=== PATIENT | male | born 1945 | race Caucasian/White ===

== ENCOUNTER → 2019-03-31 09:32 | Outpatient (CLI) | payer MEDICARE, SELFPAY ==
[2019-02-05 13:18] VITALS: BMI 40.2
[2019-03-31 11:06] LABS: Anion Gap 7 (5-15); BUN 24 mg/dL (7-18); BUN/Creat Ratio 19.4 RATIO (10-20); Calcium,Total 9.3 mg/dL (8.5-10.1); Chloride 105 mmol/L (98-107); Creatinine, Serum 1.24 mg/dL (0.70-1.30); EST Glomerular Filtration Rate 61 mL/min (>60); Est Glom Filt Rate - Afr Amer 73 mL/min (>60); Glucose 138 mg/dL (74-106); Potassium 3.5 mmol/L (3.5-5.1); Sodium Level 139 mmol/L (136-145)
== END ==
PROVIDERS: Family Provider Family Medicine; PCP Family Medicine; Referring Provider Internal Medicine Cardiovascular Disease; Visit Provider Internal Medicine Cardiovascular Disease
DX: E78.5 Hyperlipidemia, unspecified (principal); I10 Essential (primary) hypertension; I25.10 Atherosclerotic heart disease of native coronary artery without angina pectoris; I48.0 Paroxysmal atrial fibrillation; Z95.1 Presence of aortocoronary bypass graft
CPT/HCPCS: 36415; 80048

== ENCOUNTER 2020-06-28 17:35 | Outpatient (RCR) | payer MEDICARE, SELFPAY ==
[2020-02-02 13:53] VITALS: BMI 39.9
== END 2020-06-28 23:59 ==
LOC: IMMUN 17:35
PROVIDERS: PCP Family Medicine; Referring Provider Family Medicine; Visit Provider Family Medicine
DX: Z23 Encounter for immunization (principal)
CPT/HCPCS: 0011A; 0012A

== ENCOUNTER → 2022-02-21 | Outpatient (CLI) | payer MEDICARE, MEDICAID, SELFPAY ==
--- NOTE | 2022-02-21 08:54 | ECHOCS_ITS ---
Reason For Study: s/p CABG Procedure This was a 2D Doppler, Color Flow transthoracic echocardiogram. The study was technically difficult. Contrast injection was performed. Exam performed in department. Left Ventricle Normal LV size. Segmental dysfunction with preserved ejection fraction (see wall motion). The estimated ejection fraction is 60 %. Post operative septal motion. No evidence for diastolic dysfunction. Mid-inferoseptal : Hypokinetic. Mid-anteroseptal : Hypokinetic. Right Ventricle Normal RV size. Normal systolic function. Atria The left atrium is mildly enlarged. Normal right atrium. No doppler evidence for ASD. Mitral Valve There is no mitral annular calcification. Normal mitral valve. Trivial mitral valve insufficiency. Tricuspid Valve Normal tricuspid valve. Trivial tricuspid valve insufficiency. Right ventricular systolic pressure estimated to be 33 mmHg. Aortic Valve Trisinus/trileaflet aortic valve. Mild focal aortic valve calcification. Pulmonic Valve The pulmonic valve is not well visualized. Great Vessels Borderline enlarged aortic root. Pericardium/Pleural No pericardial effusion. Medication 20 gauge I.V. with prn adaptor inserted into left arm. Diluted definity 2ml given slow IV push to enhance endocardial definition. MMode/2D Measurements & Calculations LVIDd: 5.5 cm IVSd: 1.1 cm Ao root diam: 3.9 cm LVIDs: 3.6 cm LVPWd: 1.1 cm LA dimension: 5.3 cm FS: 34.3 % LAV(MOD-bp): 72.5 ml LA A4 area: 25.4 cm2 RA A4 area: 17.8 cm2 LAV(MOD-bp) Indexed: 28.9 ml/m2 LAV(MOD-sp2): 62.9 ml LAV(MOD-sp4): 73.4 ml Time Measurements MV dec time: 0.17 sec Doppler Measurements & Calculations MV E max raul: 74.1 cm/sec Lat Peak E' Raul: 8.4 cm/sec Med Peak E' Raul: 10.1 cm/sec MV A max raul: 62.8 cm/sec E/E' lat: 8.8 E/E' med: 7.4 MV E/A: 1.2 MV V2 max: 97.6 cm/sec MV P1/2t max raul: 97.6 cm/sec Ao V2 max: 154.1 cm/sec MV max P.8 mmHg MV P1/2t: 64.9 msec Ao max P.5 mmHg MV V2 mean: 41.5 cm/sec MV dec slope: 440.4 cm/sec2 Ao V2 mean: 104.7 cm/sec MV mean P.88 mmHg Ao mean P.1 mmHg MV V2 VTI: 35.5 cm MVA(P1/2t): 3.4 cm2 Ao V2 VTI: 36.7 cm LV V1 max: 118.7 cm/sec PA V2 max: 94.3 cm/sec TR max raul: 272.2 cm/sec LV V1 max P.6 mmHg PA V2 mean: 59.6 cm/sec TR max P.6 mmHg LV V1 mean P.1 mmHg LV V1 mean: 83.2 cm/sec LV V1 VTI: 27.3 cm ECHO/Echo Complete W/ Contrast Interpretation Summary The study was technically difficult. Contrast injection was performed. Segmental dysfunction with preserved ejection fraction (see wall motion). The estimated ejection fraction is 60 %. Post operative septal motion. The left atrium is mildly enlarged. Trivial mitral valve insufficiency. Trivial tricuspid valve insufficiency. Mild focal aortic valve calcification. Right ventricular systolic pressure estimated to be 33 mmHg. No evidence for diastolic dysfunction. Ordering Physician: Suresh Lopez Referring Physician: Azael Gonsales Performed By: Stephen Agustin RCS
== END | disposition home or self-care (01) ==
LOC: CVS 08:53
PROVIDERS: PCP Family Medicine; Referring Provider Internal Medicine Cardiovascular Disease; Visit Provider Internal Medicine Cardiovascular Disease
DX: I25.10 Atherosclerotic heart disease of native coronary artery without angina pectoris (principal); Z95.1 Presence of aortocoronary bypass graft
CPT/HCPCS: 93306; Q9957; A4216; C8929

== ENCOUNTER 2022-08-16 14:44 | Emergency (ER) | payer MEDICARE, MEDICAID, SELFPAY ==
[2022-08-16 14:44] VITALS: BP 170/85; PULSE 51; RESP 18; TEMP 35.9; O2SAT 94; BMI 39.2
--- NOTE | 2022-08-16 14:54 | CT_ITS ---
EXAM: CT CERVICAL SPINE WITHOUT INTRAVENOUS CONTRAST CLINICAL INDICATION: Trauma injury. Right frontal scalp hematoma. TECHNIQUE: Helically acquired images were obtained of the cervical spine without intravenous contrast. 2D reformatted images were reviewed. This CT exam was performed using one or more of the following dose reduction techniques: automated exposure control, adjustment of the mA and/or kV according to patient size, and/or use of iterative reconstruction technique. This report was created using [email or web address] report generation technology. RADIATION DOSE: CTDIvol = 29.07 mGy, DLP = 626.21 mGy-cm COMPARISON: None. FINDINGS: VERTEBRAE: Mild degenerative anterolisthesis of C3 on C4. Straightening of the C-spine curvature. Moderate left C3-C4 degenerative facet arthropathy. Degenerative cyst in the left C7 inferior to the facet. Mild to moderate right C4-C5 degenerative facet arthropathy with small degenerative cysts. No discrete lytic or blastic abnormality. Normal craniocervical junction and cervicothoracic junction. Normal vertebral body heights. DISCS/SPINAL CANAL/NEURAL FORAMINA: Moderate stenosis of the C5-C6 intervertebral neural foramina due to bone spurs arising from the uncovertebral joints. Ankylosis of the right C2-C3 facet joint and partial ankylosis of the left C2-C3 facet joint. Moderate disc space height narrowing at C5-C6 and C6-C7 disc space levels. Prominent and bridging right-sided anterior marginal spurs at C5-C6 and C6-C7 disc space levels. SOFT TISSUES: Unremarkable. No prevertebral soft tissue swelling. VASCULATURE: Prominent calcified plaque in the right proximal internal carotid artery with suspicious high-grade stenosis. LYMPH NODES: Unremarkable. No cervical adenopathy. LUNG APICES: Unremarkable as visualized. Clear. CT/Spine Cervical without Contras IMPRESSION: 1. No CT evidence of acute fracture in the cervical spine, craniocervical junction and cervicothoracic junction. 2. Mild degenerative anterolisthesis of C3 on C4. 3. Ankylosis of the C3-C4 facet joints. 4. Moderate stenosis of the C5-C6 intervertebral neural foramina due to bone spurs arising from the uncovertebral joints. 5. Degenerative cysts in the left C7 intra-articular facet. 6. Degenerative cyst in the right C4-C5 facet joint. 7. Prominent circumferential calcified plaques in the right proximal internal carotid artery worrisome for high-grade stenosis. MRA of the neck will be very helpful for further evaluation. Electronically Signed: Lucien Nevarez MD at 15:54 EDT ,
--- NOTE | 2022-08-16 14:54 | CT_ITS ---
EXAM: CT HEAD WITHOUT INTRAVENOUS CONTRAST CLINICAL INDICATION: Trauma head injury. TECHNIQUE: Multiple axial images were obtained of the head without intravenous contrast. This CT exam was performed using one or more of the following dose reduction techniques: automated exposure control, adjustment of the mA and/or kV according to patient size, and/or use of iterative reconstruction technique. This report was created using [employer] report generation technology. RADIATION DOSE: CTDIvol = 44.99 mGy, DLP = 812.98 mGy-cm COMPARISON: None. FINDINGS: BRAIN AND EXTRA-AXIAL SPACES: Unremarkable. No intra- or extra-axial hemorrhage. No evidence of acute infarct. No intracranial mass or mass effect. There is preservation of the luna/white matter interface. Posterior fossa structures are unremarkable. Ventricles are appropriate for age. No hydrocephalus. Basal cisterns are patent. BONES/JOINTS: Unremarkable. No discrete lytic or blastic abnormalities. SOFT TISSUES: Large subgaleal hematoma in the right frontal scalp. SINUSES: Unremarkable as visualized. Clear. MASTOID AIR CELLS: Unremarkable. Clear. ORBITS: Visualized globes, extraocular muscles, optic nerves and retrobulbar fat appear unremarkable. CT/Brain/Head without Contrast IMPRESSION: Large subgaleal hematoma in the right lateral frontal scalp but no CT evidence of intracranial bleeding, acute ischemic infarct or acute intracranial abnormality. Electronically Signed: Lucien Nevarez MD at 15:46 EDT ,
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
[2022-08-16] MEDS: Diphth,Pertuss(Acell),Tet Vac 0.5 ML Vial IM (15:05)
[2022-08-16 16:13] VITALS: BP 134/78; PULSE 67; RESP 18; TEMP 36.6; O2SAT 99
== END 2022-08-16 16:14 | disposition home or self-care (01) ==
PROVIDERS: Emergency Provider Emergency Medicine; PCP Family Medicine; Visit Provider Emergency Medicine
DX: S00.03XA Contusion of scalp, initial encounter (principal); I25.10 Atherosclerotic heart disease of native coronary artery without angina pectoris; I25.2 Old myocardial infarction; Z86.73 Personal history of transient ischemic attack (TIA), and cerebral infarction without residual deficits; Z23 Encounter for immunization; Z87.891 Personal history of nicotine dependence; Z95.1 Presence of aortocoronary bypass graft; X58.XXXA Exposure to other specified factors, initial encounter
CPT/HCPCS: 70450; 72125; 90471; 90715; 99282

== ENCOUNTER → 2022-12-01 | Outpatient (CLI) | payer MEDICARE, MEDICAID, SELFPAY ==
--- NOTE | 2022-12-01 13:57 | ECHOD_ITS ---
Reason For Study: PRE CHEMO Procedure This was a 2D Doppler, Color Flow transthoracic echocardiogram. Myocardial strain analysis was performed in this exam to aid in the assessment of cardiac function. The study was technically difficult. Exam performed in department. Left Ventricle Normal LV size. Left ventricular systolic function is normal. Stage 1 diastolic dysfunction. The estimated ejection fraction is 60 %. No regional wall motion abnormalities noted. Right Ventricle Normal RV size. Normal systolic function. Atria The left atrium is mildly enlarged. Normal right atrium. Mitral Valve Normal mitral valve. Tricuspid Valve Normal tricuspid valve. Trivial tricuspid valve insufficiency. Pulmonary artery systolic pressure is 30 mmHg. Aortic Valve Trisinus/trileaflet aortic valve. Pulmonic Valve Normal pulmonic valve. Great Vessels Calcified aortic root. The pulmonary artery is normal size. Normal inferior vena cava. Pericardium/Pleural No pericardial effusion. MMode/2D Measurements & Calculations LVIDd: 5.4 cm IVSd: 1.0 cm Ao root diam: 3.9 cm LVIDs: 3.6 cm LVPWd: 1.0 cm RVDd: 3.6 cm FS: 33.8 % LAV(MOD-bp): 61.9 ml EDV(MOD-sp4): 97.7 ml EDV(MOD-sp2): 52.1 ml LAV(MOD-bp) Indexed: 25.0 ml/m2 ESV(MOD-sp4): 38.7 ml ESV(MOD-sp2): 21.7 ml LAV(MOD-sp2): 53.4 ml EF(MOD-sp4): 60.4 % EF(MOD-sp2): 58.3 % LAV(MOD-sp4): 60.7 ml SV(MOD-sp4): 59.1 ml SV(MOD-sp2): 30.3 ml LA A4 area: 20.3 cm2 LA dimension(2D): 4.8 cm RA A4 area: 14.7 cm2 Time Measurements MV dec time: 0.18 sec Doppler Measurements & Calculations MV E max raul: 66.0 cm/sec Lat Peak E' Raul: 9.9 cm/sec Med Peak E' Raul: 7.4 cm/sec MV A max raul: 71.1 cm/sec E/E' lat: 6.7 E/E' med: 8.9 MV E/A: 0.93 MV dec slope: 353.4 cm/sec2 Ao V2 max: 119.0 cm/sec LV V1 max: 98.5 cm/sec Ao max P.7 mmHg LV V1 max P.9 mmHg Ao V2 mean: 88.5 cm/sec LV V1 mean P.9 mmHg Ao mean P.4 mmHg LV V1 mean: 63.7 cm/sec Ao V2 VTI: 27.4 cm LV V1 VTI: 22.3 cm AV (velocity ratio): 0.82 PA V2 max: 97.5 cm/sec TR max raul: 254.8 cm/sec PA V2 mean: 62.4 cm/sec TR max P.0 mmHg ECHO/Echo Complete Interpretation Summary Normal LV size. Left ventricular systolic function is normal. Stage 1 diastolic dysfunction. The estimated ejection fraction is 60 %. Pulmonary artery systolic pressure is 30 mmHg. The global longitudinal strain is mildly abnormal. The global longitudinal stra in = -15.1% (abnormal). Ordering Physician: Suresh Michael Referring Physician: Azael Gonsales Performed By: Teresita Espinosa, KAMLESH, RVT
== END | disposition home or self-care (01) ==
LOC: CVS 13:56
PROVIDERS: PCP Family Medicine; Referring Provider Internal Medicine Hematology & Oncology; Visit Provider Internal Medicine Hematology & Oncology
DX: C83.38 Diffuse large B-cell lymphoma, lymph nodes of multiple sites (principal); Z51.81 Encounter for therapeutic drug level monitoring; Z79.899 Other long term (current) drug therapy
CPT/HCPCS: 93306

== ENCOUNTER → 2022-12-05 | Outpatient (CLI) | payer MEDICARE, MEDICAID, SELFPAY ==
--- NOTE | 2022-12-05 08:30 | PET_ITS ---
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 COMPARISON EXAMINATION: None available INDEX LESION SIZE LUGANO SCORE SUV INTERPRETATION Bilateral anterior-lateral neck 20.3-mm (largest) 5 9.4 (max) Fulfills quantitative criteria for viable neoplasm Bilateral axilla, retropectoral, periclavicular lymph node basins 44.6-mm (largest) 5 9.9 (max) Fulfills quantitative criteria for viable neoplasm Mediastinum, left thoracic perihilum 19.0-mm (largest) 5 7.6 (max) Fulfills quantitative criteria for viable neoplasm Right hemithorax pleural interface 5 9.5 (max) Fulfills quantitative criteria for viable neoplasm Abdominal retroperitoneum and mesentery, bilateral hemipelvis and inguinal regions 44.2-mm (largest) 5 12.0 (max) Fulfills quantitative criteria for viable neoplasm Spleen 16.9-cm 5 13.95 Fulfills quantitative criteria for viable neoplasm TECHNIQUE: Following the intravenous administration of 13.97 mCi of F-18 deoxyglucose via the right antecubital fossa, multiplanar image acquisitions of the neck, chest, abdomen and pelvis to level of mid thigh, obtained at one hour post radiopharmaceutical administration contemporaneously interpreted with the current CT of the neck, chest, abdomen and pelvis, to level of mid thigh, dated 12/05/22 via coregistration reveals: BLOOD GLUCOSE LEVEL:?? 108 mg/dl?HEIGHT:?72 inches?WEIGHT: 281 lbs. FINDINGS: Head/Neck: Increased FDG concentration is noted in the bilateral-lateral neck to include level IIA-B, III, level V-A-B, the bilateral anterior neck involving level IV bilaterally and level to the right of the midline. The calculated maximal standard uptake value is 9.4. The [place] Deauville score is 5. The maximal axial diameter of the largest metabolic, morphologic abnormality is 20.3-mm. The visualized portion of the cerebral cortical-subcortical structures demonstrate symmetric and preserved glucose metabolism. CHEST: Increased FDG concentration is noted in the bilateral axilla, retropectoral and periclavicular regions. The calculated maximal standard uptake value is 9.9. The [place] Deauville score is 5. The maximal axial diameter of the largest corresponding soft tissue density is 44.6-mm. Facilitated uptake is noted in the mediastinal structures and left thoracic perihilum. The calculated maximal standard uptake value is 7.6. The [place] Deauville score is 5. The maximal axial diameter of the largest corresponding soft tissue density is 19.0-mm. Facilitated uptake is noted in several locations within the right hemithorax at the pleural interface. The calculated maximal standard uptake value is 9.5. Pertinent chest CT findings are as follows. There is atherosclerotic calcification defined in the thoracic aorta without evidence of dilatation-aneurysm formation. Coronary arterial calcification is observed. There is evidence of prior median sternotomy. There are no parenchymal densities-nodules defined in the right and left hemithorax with quantitatively significant increased FDG uptake. Abdomen/Pelvis: There is facilitated FDG concentration defined in the abdominal retroperitoneum and mesentery, the bilateral hemipelvis, inguinal regions generating a calculated maximal standard uptake value of 12.0. The largest corresponding soft tissue density is 44.2-mm. The [place] Deauville score is 5. The spleen is enlarged demonstrating a maximal axial diameter of 16.9-cm. The uncorrected calculated maximal standard uptake value is 13.95. The [place] Deauville score is 5. Normal physiologic distribution of the radiopharmaceutical is apparent in the hepatic parenchyma, both renal units, bladder and visualized intestinal tract. Pertinent abdomen and pelvis CT findings are as follows. Cholelithiasis is defined. There is atherosclerotic calcification defined in the abdominal aorta without evidence of dilatation-aneurysm formation. Abdominal-pelvic arterial calcification is observed. Calcification is defined in the bilateral renal units. Calculus formation is defined within the urinary bladder. Skeletal: Degenerative changes are noted in the cervical, thoracic and lumbar spine without evidence of increased radiopharmaceutical concentration. PET/PET/CT Tumor Base -Thigh Init IMPRESSION: 1. ABNORMAL EXAMINATION INDICATIVE OF MALIGNANT VIABLE NEOPLASM. 2. Increased radiopharmaceutical concentration noted in the bilateral lateral and anterior neck, the right-left axillary and retropectoral and periclavicular lymph nodes, the mediastinal structures and left thoracic perihilum, the right hemithorax at the pleural interface, the abdominal retroperitoneum and mesentery, bilateral hemipelvis and inguinal regions fulfills quantitative criteria for malignant transformation. (Kayode et al, Journal of Clinical Oncology 32:3059, 2014). 3. Enhanced tracer uptake noted in the enlarged spleen fulfills quantitative criteria for viable splenic neoplasm. (Dione et al., Journal of Nuclear Medicine 44:1072, 2004). Electronic Signature Kevin Newell D.O. Accurate Quantification of SUVs and standardized [place] scores specific to lymphoma FDG PET-CT study interpretation for this report are calculated using the exclusive Mobile Service [employer]. ([place]. Patent No. [id number] B2 [phone] [place] patent [phone]). Standardization and correction of the FDG SUV metric via [employer] technology allow for vendor non-specific objective quantitative examination comparison and optimization of the sensitivity and specificity of the FDG PET-CT examination. Electronically Signed: Kevin Newell, at 20:35 EDT ,
== END | disposition home or self-care (01) ==
LOC: ONC 08:16
PROVIDERS: PCP Family Medicine; Referring Provider Internal Medicine Hematology & Oncology; Visit Provider Internal Medicine Hematology & Oncology
DX: C83.38 Diffuse large B-cell lymphoma, lymph nodes of multiple sites (principal)
CPT/HCPCS: 78815; A9552

== ENCOUNTER 2023-01-04 10:04 | Observation (INO) | payer MEDICARE, MEDICAID, SELFPAY ==
[2023-01-04 10:05] VITALS: BP 126/71; PULSE 60; RESP 14; TEMP 36.4; O2SAT 98; BMI 34.3
--- NOTE | 2023-01-04 10:40 | EX.ED.DYSGE1 ---
HPI History of Present Illness Chief Complaint: Abn Labs Detail of Chief Complaint: Due to increasing creatinine. Informant: patient Onset/Context/Timing Onset: Days Context: Gradual Onset Timing: Continuous Current Severity: Mild Maximum Severity: Mild Narrative Narrative: 78-year-old male history of B-cell lymphoma diagnosed a month or so ago. Was started on chemotherapy 3 weeks ago. Developed tumor lysis syndrome. Had to be admitted to [facility]. They were able to treat that successfully. Now he has accelerating creatinine. He does have a history of urinary frequency. Denies any gross hematuria or dysuria. He has needed a Maria catheter in the past. Prior similar symptoms: Yes Recent Illness/Hospitalization: Yes [facility] Medical History (Updated 01/04/23 @ 15:[address] Arthur Plata MD) ASD (atrial septal defect) Atherosclerotic heart disease of [place] coronary artery without angina pectoris Borderline diabetes mellitus Essential hypertension Gout Hyperlipidemia Morbid obesity with BMI of 40.0-44.9, adult NSTEMI (non-ST elevated myocardial infarction) Old myocardial infarction Paroxysmal atrial fibrillation TIA (transient ischemic attack) Home Medications allopurinol 100 mg tablet 100 mg PO DAILY 11/06/16 [History Last Taken 11/05/16] aspirin 81 mg tablet,delayed release 81 mg PO DAILY@0800 12/19/16 [History Last Taken Unknown] metformin 500 mg tablet 500 mg PO BIDCM 12/19/16 [History Last Taken Unknown] metoprolol succinate 50 mg tablet,extended release 24 hr 50 mg PO DAILY 12/19/17 [History Last Taken Unknown] atorvastatin 40 mg tablet 20 mg PO QDAY 03/28/18 [History Last Taken Unknown] losartan 100 mg tablet 100 mg PO DAILY 02/05/19 [History Last Taken Unknown] tamsulosin 0.4 mg capsule (Flomax) 0.4 mg PO DAILY 01/31/21 [History Last Taken Unknown] doxazosin 4 mg tablet 4 mg PO DAILY #90 tabs 02/13/22 [Rx Last Taken Unknown] hydrochlorothiazide 50 mg tablet 50 mg PO DAILY #90 tabs 02/13/22 [Rx Last Taken Unknown] potassium chloride 10 mEq tablet,extended release 20 meq (2 x 10 mEq) PO DAILY #180 tabs 02/13/22 [Rx Last Taken Unknown] Allergy/AdvReac Type Severity Reaction Status Date / Time No Known Allergies Allergy Verified 01/04/23 10:05 Family History Mother Hypertension Father Heart disease Brother CAD (coronary artery disease) Hx of CABG Surgical History Aortocoronary bypass status (~11/09/16) Social History Smoking Status: Former smoker alcohol intake: current details: occasional substance use type: does not use ROS ROS ED ROS Narrative Denies recent illness. Review of Systems ROS Unobtainable: Denies due to encephalopathy Constitutional Constitutional ED: Denies chills or fever(s) Eyes Eyes: Denies blurry vision ENT ENT ED: Denies ear pain Cardiovascular Cardiovascular: Denies chest pain Respiratory/Chest Respiratory/Chest: Denies cough or dyspnea Gastrointestinal Gastrointestinal: Denies abdominal pain, constipation, melena, nausea or vomiting Genitourinary Genitourinary ED: Reports urinary frequency; Denies dysuria or hematuria Musculoskeletal Musculoskeletal: Denies arthralgias Integumentary Denies abscess Neurologic Neurologic: Denies headache(s) Psychiatric Psychiatric: Denies anxiety Endocrine Endocrinology: Denies cold intolerance Hematologic/Lymphatic Hematologic/Lymphatic: Reports none; Denies systems reviewed and no addt'l complaints, except as documented Allergic/Immunologic Allergic/Immunologic ED: Denies mouth swelling, tongue swelling or urticaria EXAM Physical Exam Narrative Exam Narrative: 78-year-old male. Vital signs stable afebrile. at bedside. H EENT exam unremarkable. Neck nontender. No JVD. Lungs clear to auscultation bilaterally. Heart regular rhythm no murmur. Abdomen soft nontender. Nondistended. Normal bowel sounds. No peritoneal signs. No organomegaly. No suprapubic pain on palpation. No obvious distended bladder. Moving all 4 extremities. Nontender no edema. Neurologically is awake and alert. No focal motor deficits. Answering questions following commands. Const Vital Signs: 01/04/23 10:05 01/04/23 10:05 01/04/23 12:58 Temperature 97.6 F L Temperature Source Temporal Pulse Rate 60 60 Respiratory Rate 14 18 Respiratory Effort Normal Non-Labored Respiratory Pattern Normal Blood Pressure 126/71 H 128/68 H Blood Pressure Mean 89 88 Pulse Ox 98 96 Oxygen Delivery Method Room Air Room Air Positive well nourished and well developed; Negative for cachectic, contractures or unkempt General Appearance ED: well developed and NAD; Negative for unkempt, cachectic, contractures, cyanotic, diaphoretic or pallor Nutritional Appearance: Negative for cachectic HEENT Reports moist mucous membranes Negative for trauma or tenderness Eyes PERRL and EOMs intact bilaterally General Eye ED: Negative for pale conjunctiva or scleral icterus Neck no lymphadenopathy, supple and no JVD General: Negative for tenderness Lymph Lymphatic: Negative for other Chest Wall inspection of chest normal and palpation of chest normal Chest: Negative for other Resp normal respiratory effort and clear to auscultation bilaterally Effort and Inspection: Negative for retractions Auscultation: Negative for rales, rhonchi or wheezes Cardio regular rate, regular rhythm, S1 normal heart sound, S2 normal heart sound and no murmurs Palpation: Negative for palpable S3 or palpable S4 Rate: Negative for bradycardia or tachycardic Rhythm: abnormal rhythm GI normal to inspection, nondistended, normoactive bowel sounds, non-tender, non-distended and no masses; Negative for hepatosplenomegaly Inspection: Negative for abdominal distention Auscultation: normoactive bowel sounds Palpation: soft; Negative for tender or guarding Back/Spine no CVA tenderness General Back: Negative for CVA tenderness Cervical Spine: Negative for cervical spine tenderness Thoracic Spine / Upper Back: Negative for thoracic spinal tenderness Lumbar Spine / Lower Back: Negative for lumbar spinal tenderness Extremity normal to inspection General Extremety ED: Negative for edema or tenderness General Extremity: Negative for edema Neuro oriented x3 and CN's II-XII intact bilaterally Sensorium / Orientation: alert; Negative for orientation impaired, lethargic or stuporous Motor Exam: strength 5/5 throughout Psych mental status grossly normal Appearance: Negative for unkempt Attitude: No agitated Mood & Affect: Negative for depressed, anxious or tearful Skin no rashes or lesions noted, no wounds and skin turgor normal General Skin Exam: elasticity normal; Negative for jaundice or pallor Lesions: No lesion noted Rashes: No rashes noted Trauma: Negative for abrasion Wounds: Negative for wounds noted MDM MDM MDM Narrative Medical decision making narrative: 78-year-old male with increasing or worsening creatinine with a history of B-cell lymphoma recently started on chemotherapy. Screening labs and UA will be obtained along with a bladder scan to see if this could be secondary to urinary retention. Repeat exam patient doing well at 3:08 PM. Unchanged. I went over test results with the patient and his . Since oncologist Dr. Suresh Michael and I spoke. Patient's kidney function his creatinine is doubled in the last week. They do not really have a specific cause. It does not appear to be from obstructive uropathy. He has a postvoid residual of only 230. It could be from his uric acid being elevated at 9. Dr. Michael and I would like the patient admitted to the hospitalist be evaluated by plant anatomy teacher and then we can go from there. Patient History & Record Review Discussion w/independent historian: Patient and Family Lab Data Attestation: I reviewed the patient's lab results. Lab results narrative: CBC shows white count 10.7. H&H of 10 and 31.4. Platelets 270. 5 chemistry shows sodium 135 for potassium 2.8 gap is 10. BUN and creatinine are 21 no evidence of 0.34. Analysis shows 10-25 white cells. Rare bacteria. No nitrates. Labs: Laboratory Results - last 24 hr 01/04/23 11:13 WBC 11.7 H RBC 3.66 L Hgb 10.0 L Hct 31.4 L MCV 85.8 MCH 27.3 MCHC 31.8 L RDW Std Deviation 44.4 H RDW Coeff of Dae 14.8 H Plt Count 270 MPV 9.3 Neut % (Auto) Not Reportable Absolute Neuts (auto) 10.5 H Absolute Lymphs (auto) 0.59 L Total Counted 100 Neutrophils % (Manual) 86 H Band Neutrophils % 4 Lymphocytes % (Manual) 5 L Eosinophils % (Manual) 1 Metamyelocytes % 2 H Myelocytes % 2 H Diff Path Review May foll Platelet Estimate ADEQUATE RBC Morphology NORM C+C Sodium 135 L Potassium 2.8 L Chloride 101 Carbon Dioxide 24.0 Anion Gap 10 BUN 21 H Creatinine 2.34 H Estim Creat Clear Calc 29.02 Est GFR (MDRD) Af Amer 35 L Est GFR (MDRD) Non-Af 29 L BUN/Creatinine Ratio 9.0 L Glucose 199 H Calcium 8.1 L Urine Color Yellow Urine Clarity Clear Urine pH 6.5 Ur Specific [place] 1.010 Urine Protein 15 H Urine Glucose (UA) Normal Urine Ketones Negative Urine Occult Blood Negative Urine Nitrite Negative Urine Bilirubin Negative Urine Urobilinogen Normal Ur Leukocyte Esterase 100 H Urine RBC 0-5 SEEN Urine WBC 10-25 SEEN Ur Squamous Epith Cells 0-5 SEEN Urine Bacteria RARE Urine Mucus 1+ Discharge Plan Triage Chief Complaint: Abn Labs ED Provider: Arthur Plata Dx/Rx/DC Orders Clinical Impression: Acute kidney injury, Creatinine elevation, History of lymphoma, Elevated blood uric acid level, Hypokalemia Prescriptions: No Action metoprolol succinate 50 mg tablet extended release 24 hr 50 mg PO DAILY losartan 100 mg tablet 100 mg PO DAILY tamsulosin [Flomax] 0.4 mg capsule 0.4 mg PO DAILY allopurinol 100 MG tablet 100 mg PO DAILY Patient Comments: gout metformin 500 MG tablet 500 mg PO BIDCM aspirin 81 MG tablet 81 mg PO DAILY@0800 atorvastatin 40 mg tablet 20 mg PO QDAY potassium chloride 10 mEq tablet extended release 20 meq PO DAILY Qty: 180 3RF doxazosin 4 mg tablet 4 mg PO DAILY Qty: 90 3RF hydrochlorothiazide 50 mg tablet 50 mg PO DAILY Qty: 90 3RF Primary Care Provider: Azael Gonsales Referrals: Azael Gonsales MD [Primary Care Provider] - Disposition Disposition: Acute Care Hospital [facility]
[2023-01-04 11:20] LABS: Color, Urine Yellow (Yellow); Glucose, Dipstick Normal (Normal); Ketone-Dipstick Negative (Negative); Leukocyte Esterase-Dipstick 100 /ul (Negative); Nitrite-Dipstick Negative (Negative); Occult Blood-Urine Negative /ul (Negative); Protein-Dipstick 15 mg/dl (Negative); Urine Bilirubin Dipstick Negative (Negative); Urine Clarity Clear (Clear); Urine Urobilinogen Normal (Normal); Urine pH 6.5 (5.0 - 8.0)
[2023-01-04 11:24] LABS: Hematocrit 31.4 % (40-54); Mean Corp Hgb Conc 31.8 g/dL (32-36); Mean Corpuscular Hgb 27.3 pg (27.0-32.0); Mean Corpuscular Volume 85.8 fL (80-94); Mean Platelet Vol. 9.3 fl (6.2-12.0); POSITIVE COUNT YES; POSITIVE DIFFERENTIAL YES; POSITIVE MORPHOLOGY YES; Platelet Count 270 K/mm3 (150-450); RBC Distribution Width CV 14.8 % (11.6-14.6); RBC Distribution Width SD 44.4 fl (35.1-43.9); Red Blood Count 3.66 M/mm3 (4.6-6.2); White Blood Count 11.7 K/mm3 (4.4-11.0)
[2023-01-04 11:32] LABS: Differential Indicated MANUAL DIFF
[2023-01-04 11:36] LABS: Anion Gap 10 (5-15); BUN 21 mg/dL (7-18); Bacteria RARE /hpf (None Seen); Calcium,Total 8.1 mg/dL (8.5-10.1); Chloride 101 mmol/L (98-107); Creatinine, Serum 2.34 mg/dL (0.70-1.30); EST Glomerular Filtration Rate 29 mL/min (>60); Est Glom Filt Rate - Afr Amer 35 mL/min (>60); Estimated Creatinine Clearance 29.02 ml/min; Glucose 199 mg/dL (74-106); Mucous, Urine 1+ /hpf (<or=2+); Potassium 2.8 mmol/L (3.5-5.1); Red Blood Cells-Urine 0-5 SEEN /hpf (0-5); Sodium Level 135 mmol/L (136-145); Squamous Epithelial Cells - UA 0-5 SEEN /hpf (0-5); White Blood Cells 10-25 SEEN /hpf (0-5)
[2023-01-04 11:52] LABS: Eosinophil 1 % (0-5); Lymphocyte 5 % (19-41); Metamyelocyte 2 % (0-1); Myelocyte 2 % (0-0); Neutrophil-Band 4 % (0-5); Neutrophil-Segmented 86 % (47-70); Platelet Estimate ADEQUATE (ADEQ); Red Cell Morphology NORM C+C NORMAL (NORM C&C); Total Cells Counted 100 (MANUAL DIFF)
[2023-01-04 11:53] LABS: Absolute Lymphocyte Count 0.59 X10^3/uL (0.83-4.51); Absolute Neutrophil Count 10.5 X10^3/uL (2.0-7.7)
[2023-01-04 12:58] VITALS: BP 128/68; PULSE 60; RESP 18; O2SAT 96
--- NOTE | 2023-01-04 15:19 | HP.PCM_ITS ---
[facility] - General General Date of Admission: 01/04/23 Date of Service: 01/04/23 Chief Complaint: abnormal labs HPI Narrative PUJA RUTLEDGE, is a 78 M with a PMH as outlined including recently diagnosed B Cell lymphoma, for which he is undergoing chemotherapy. He was diagnosed about a month ago. He comes in today o/a of abnormal labs. His Cr is elevated at 2.34 and he has urinary frequency also. He denied any pain with urination, frequency of urination, blood in his urine or any such symptoms. Review of systems was otherwise negative. He had tumor lysis syndrome after his first session of chemotherapy and was sent up to [facility] where he was treated. VItals in the ED were BP of 128/68, [place] of 60 and RR of 18 as well as oxygen sats of 96% on room air. CBC showed hb of 10, wbc of 11.7, platelets of 270. Chemistry showed sodium of 135 with potassium of 2.8 and Cr of 2.34. Urinalysis showed 100 leucocyte esterate, 10-25 wbc/hpf and rare bacteria. His oncologist had recently done a urine culture which showed no growth. He is being admitted to be managed for TRAM iin setting of B cell lymphoma, on chemotherapy. [facility] Medical History (Updated 01/04/23 @ 17:01 by Almita Pinedo) ASD (atrial septal defect) Atherosclerotic heart disease of [place] coronary artery without angina pectoris Borderline diabetes mellitus Diabetes Essential hypertension Former smoker Gout Hyperlipidemia Morbid obesity with BMI of 40.0-44.9, adult Myocardial infarct NSTEMI (non-ST elevated myocardial infarction) Old myocardial infarction Paroxysmal atrial fibrillation TIA (transient ischemic attack) Home Medications allopurinol 100 mg tablet 100 mg PO DAILY 11/06/16 [History Last Taken 01/04/23] aspirin 81 mg tablet,delayed release 81 mg PO DAILY@0800 12/19/16 [History Last Taken 01/04/23] metformin 500 mg tablet 500 mg PO BIDCM 12/19/16 [History Last Taken 01/04/23] metoprolol succinate 50 mg tablet,extended release 24 hr 50 mg PO DAILY 12/19/17 [History Last Taken 01/04/23] atorvastatin 40 mg tablet 20 mg PO QDAY 03/28/18 [History Last Taken 01/03/23] losartan 100 mg tablet 100 mg PO DAILY 02/05/19 [History Last Taken Unknown] tamsulosin 0.4 mg capsule (Flomax) 0.4 mg PO DAILY 01/31/21 [History Last Taken 01/03/23] doxazosin 4 mg tablet 4 mg PO DAILY #90 tabs 02/13/22 [Rx Last Taken 01/03/23] hydrochlorothiazide 50 mg tablet 50 mg PO DAILY #90 tabs 02/13/22 [Rx Last Taken Unknown] potassium chloride 10 mEq tablet,extended release 20 meq (2 x 10 mEq) PO DAILY #180 tabs 02/13/22 [Rx Last Taken Unknown] acyclovir 400 mg tablet 400 mg PO Q12H 01/04/23 [History Last Taken 01/04/23] omeprazole 40 mg capsule,delayed release 40 mg PO DAILY 01/04/23 [History Last Taken 01/04/23] prednisone 50 mg tablet 100 mg PO DAILY 01/04/23 [History Last Taken 01/04/23] Allergy/AdvReac Type Severity Reaction Status Date / Time No Known Allergies Allergy Verified 01/04/23 16:39 Family History Mother Hypertension Father Heart disease Brother CAD (coronary artery disease) Hx of CABG Surgical History (Updated 01/04/23 @ 17:01 by Almita Pinedo) Aortocoronary bypass status (~11/09/16) Hx of CABG Social History Smoking Status: Former smoker alcohol intake: current details: occasional substance use type: does not use Vital Signs Vital Signs Vital Signs: 01/04/23 10:05 01/04/23 10:05 01/04/23 12:58 Temperature 97.6 F L Temperature Source Temporal Pulse Rate 60 60 Respiratory Rate 14 18 Respiratory Effort Normal Non-Labored Respiratory Pattern Normal Blood Pressure 126/71 H 128/68 H Blood Pressure Mean 89 88 Pulse Ox 98 96 Oxygen Delivery Method Room Air Room Air Weight Weight: 253 lb 4.8 oz Body Mass Index (BMI) 34.3 Physical Exam Const alert, oriented x3 and no apparent distress General Appearance: cooperative HEENT normocephalic, head/scalp atraumatic, moist oral mucous membranes and oropharynx normal Eyes PERRL and EOMs intact bilaterally Neck no lymphadenopathy, supple and no JVD Lymph Lymphatic: no lymphadenopathy noted and no lymphedema noted Resp normal respiratory effort, normal air movement and clear to auscultation bilaterally Cardio regular rate, regular rhythm, S1 normal heart sound, S2 normal heart sound and no murmurs Palpation: normal PMI GI normal to inspection, nondistended, normoactive bowel sounds, soft to palpation, non-tender and non-distended Extremity normal capillary refill and no clubbing, cyanosis or edema General Extremity: no tenderness to palpation of joints or extremities Skin Skin Narrative: chemotherapy port in place Neuro CN's II-XII intact bilaterally, no focal motor deficits and no sensory deficits noted Motor Exam: strength 5/5 throughout Psych thought process normal, cooperative and affect normal Appearance: appropriate Results Lab / Micro Data 01/04/23 11:13 01/04/23 11:13 Labs: Laboratory Results - last 24 hr 01/04/23 11:13: WBC 11.7 H, RBC 3.66 L, Hgb 10.0 L, Hct 31.4 L, MCV 85.8, MCH 27.3, MCHC 31.8 L, RDW Std Deviation 44.4 H, RDW Coeff of Dae 14.8 H, Plt Count 270, MPV 9.3, Neut % (Auto) Not Reportable, Absolute Neuts (auto) 10.5 H, Absolute Lymphs (auto) 0.59 L, Total Counted 100, Neutrophils % (Manual) 86 H, Band Neutrophils % 4, Lymphocytes % (Manual) 5 L, Eosinophils % (Manual) 1, Metamyelocytes % 2 H, Myelocytes % 2 H, Diff Path Review May foll, Platelet E stimate ADEQUATE, RBC Morphology NORM C+C, Sodium 135 L, Potassium 2.8 L, Chloride 101, Carbon Dioxide 24.0, Anion Gap 10, BUN 21 H, Creatinine 2.34 H, Estim Creat Clear Calc 29.02, Est GFR (MDRD) Af Amer 35 L, Est GFR (MDRD) Non-Af 29 L, BUN/Creatinine Ratio 9.0 L, Glucose 199 H, Calcium 8.1 L, Urine Color Yellow, Urine Clarity Clear, Urine pH 6.5, Ur Specific [place] 1.010, Urine Protein 15 H, Urine Glucose (UA) Normal, Urine Ketones Negative, Urine Occult Blood Negative, Urine Nitrite Negative, Urine Bilirubin Negative, Urine Urobilinogen Normal, Ur Leukocyte Esterase 100 H, Urine RBC 0-5 SEEN, Urine WBC 10-25 SEEN, Ur Squamous Epith Cells 0-5 SEEN, Urine Bacteria RARE, Urine Mucus 1+ Assessment & Plan Assessment/Plan (1) Acute kidney injury: PLAN: Plan #Acute kidney injury * Cr is 2.34. Baseline Cr is ~ 1.2 * 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 Went to have his chemotherapy session today and labs showed elevated creatinine of 2.34. * After his first chemotherapy session about this a month ago, he developed tumor lysis syndrome and had to be treated at [facility] * Hydrate with IV fluids NS @ 125cc/hr. Get CT of the abdomen and pelvis as he is also known to have an enlarged prostate. * Check Fe urea. * Hold hydrochlorothiazide and losartan * Consult nephrology. * * #Hypokalemia: * Potassium is 2.8. * Will replace aggressively and trend creatinine. * Check magnesium as well. #B cell lymphoma * Diagnosed about a month ago. Undergoing chemotherapy though he did have a session today because of elevated creatinine * Follows with Dr. Michael. * On allopurinol as he had tumor lysis syndrome after his first chemotherapy. * We will hold allopurinol for now due to renal impairment * on PO prednisone 10mg daily * #Hypertension: Hydrochlorothiazide and losartan on hold due to TRAM. IV hydralazine as needed for now. On metoprolol #History of BPH: On Flomax. CT of the abdomen and pelvis pending. #Type 2 diabetes mellitus: On metformin. Hold metformin because of TRAM. Insulin sliding scale. Accu-Cheks ACHS. DVT prophylaxis: lovenox renally dosed at 30mg sq daily Code status: full code * Patient and counseled extensively about different types of CODE STATUS including full code, DNR CCA and DNR CCA. Patient elects to be full code. * Total [id number] time 17 minutes. Charges/Coding Visit Charges Inpatient E&M: 22681 Init Hosp L3 Procedures Hospitalists Procedures: 58578 Advncd Care Plan 30 Min
--- NOTE | 2023-01-04 15:21 | NURSING ---
DR KIM CALLOWAY
[2023-01-04 15:28] VITALS: BP 126/68; PULSE 62; RESP 18; TEMP 36.6; O2SAT 96
--- NOTE | 2023-01-04 15:29 | NURSING ---
MED SURG KORAM TRMA, ELEVATED CREATINE, HX OF B CELL LYMPHOMA, ELEVATED URIC ACID
[2023-01-04 16:15] VITALS: BP 130/64; PULSE 60; RESP 18
--- NOTE | 2023-01-04 16:51 | CT_ITS ---
INDICATION: acute renal failure EXAMINATION: CT ABDOMEN AND PELVIS WITHOUT CONTRAST - CT Abdomen And Pelvis W/O Contrast Injection TECHNIQUE: Helically acquired images were obtained of the abdomen and pelvis without oral or IV contrast. A radiation dose optimization technique was used for this scan. IV Contrast dosage and agent: None. Oral contrast: None. COMPARISON: PET/CT study 12/05/2022 FINDINGS: LOWER CHEST: Lung bases are clear. No cardiomegaly or pericardial effusion. LIVER: Homogeneous. No focal mass. GALLBLADDER AND BILIARY TREE: Calcified gallstones. No gallbladder distension or wall edema. No intra- or extrahepatic biliary ductal dilation. PANCREAS: No focal cystic or solid mass. SPLEEN: Splenomegaly. ADRENAL GLANDS: No nodules. KIDNEYS AND URETERS: Nonobstructing right renal calculi. No hydronephrosis. PERITONEUM: No ascites or free air. BOWEL: Normal appendix. No stomach or bowel distension. No focal inflammatory change. LYMPH NODES: Significant regression in the retroperitoneal, mesenteric and bilateral inguinal adenopathy with residual small lymph nodes no longer of pathologic size. VESSELS: Aorta is non-dilated. URINARY BLADDER: Stable large bladder stone. REPRODUCTIVE ORGANS: Stable prostate hypertrophy with mass effect on the bladder base. ABDOMINAL WALL: No discrete abdominal or pelvic wall hernia. BONES: No acute or aggressive osseous abnormality. CT/Abdomen/Pelvis without Cont IMPRESSION: Significant regression in the retroperitoneal, mesenteric and bilateral inguinal adenopathy. No acute findings in the abdomen or pelvis. Nonobstructing right nephrolithiasis. Electronically Signed: Darrel Leiva MD at 17:47 EDT ,
[2023-01-04 16:52] VITALS: BMI 33.0
[2023-01-04 17:05] VITALS: BP 135/64; PULSE 54; RESP 14; TEMP 36.5; O2SAT 100
[2023-01-04 17:33] VITALS: BMI 34.0
[2023-01-04] MEDS: 0.9% Normal Saline (1000mL) 1,000 ML 125 ML IV (17:59)
[2023-01-04] MEDS: 0.9% Saline Lock 10 ML Syringe IV (18:03)
[2023-01-04 18:30] LABS: Bedside Glucose 203 mg/dL (74-106)
[2023-01-04 21:22] LABS: Bedside Glucose 223 mg/dL (74-106)
[2023-01-04] MEDS: Acyclovir 200 MG Capsule 400 MG PO (21:35)
[2023-01-04] MEDS: Potassium Chloride 10mEq/100mL 10 MEQ/100 ML IV.SOLN. 100 MEQ IV BOLUS ×2 (21:35→23:12)
[2023-01-04] MEDS: Insulin Lispro 100 UNIT/ML INSULN.PEN SC (21:38)
[2023-01-04 22:00] VITALS: BP 120/58; PULSE 60; RESP 16; TEMP 36.8; O2SAT 98
[2023-01-05] VITALS (7 sets, daily range): BP systolic 100–126; BP diastolic 53–69; PULSE 55–75; RESP 14–16; TEMP 36.4–36.9; O2SAT 93–98
[2023-01-05] MEDS: Potassium Chloride 10mEq/100mL 10 MEQ/100 ML IV.SOLN. 100 MEQ IV BOLUS ×2 (00:18→02:03)
[2023-01-05] MEDS: 0.9% Normal Saline (1000mL) 1,000 ML 125 ML IV (05:43)
[2023-01-05] MEDS: Insulin Lispro 100 UNIT/ML INSULN.PEN SC ×2 (05:43→20:31)
[2023-01-05 06:02] LABS: Hematocrit 27.1 % (40-54); Hemoglobin 8.8 g/dL (13.0-16.5); Mean Corp Hgb Conc 32.5 g/dL (32-36); Mean Corpuscular Hgb 27.8 pg (27.0-32.0); Mean Corpuscular Volume 85.8 fL (80-94); Mean Platelet Vol. 9.6 fl (6.2-12.0); POSITIVE COUNT YES; POSITIVE DIFFERENTIAL YES; POSITIVE MORPHOLOGY YES; Platelet Count 242 K/mm3 (150-450); RBC Distribution Width CV 14.6 % (11.6-14.6); RBC Distribution Width SD 44.2 fl (35.1-43.9); Red Blood Count 3.16 M/mm3 (4.6-6.2); White Blood Count 14.6 K/mm3 (4.4-11.0)
[2023-01-05 06:06] LABS: Bedside Glucose 161 mg/dL (74-106)
[2023-01-05 06:10] LABS: Differential Indicated MANUAL DIFF
[2023-01-05 06:49] LABS: Anion Gap 9 (5-15); BUN 22 mg/dL (7-18); BUN/Creat Ratio 12.1 RATIO (10-20); Calcium,Total 7.7 mg/dL (8.5-10.1); Chloride 104 mmol/L (98-107); Creatinine, Serum 1.82 mg/dL (0.70-1.30); EST Glomerular Filtration Rate 39 mL/min (>60); Est Glom Filt Rate - Afr Amer 47 mL/min (>60); Estimated Creatinine Clearance 37.31 ml/min; Glucose 160 mg/dL (74-106); Sodium Level 138 mmol/L (136-145)
[2023-01-05 07:41] LABS: Anisocytosis 2+; Lymphocyte 3 % (19-41); Metamyelocyte 4 % (0-1); Monocyte 5 % (0-10); Myelocyte 7 % (0-0); Neutrophil-Band 6 % (0-5); Neutrophil-Segmented 75 % (47-70); Platelet Estimate ADEQUATE (ADEQ); Total Cells Counted 100 (MANUAL DIFF)
[2023-01-05 07:42] LABS: Absolute Lymphocyte Count 0.43 X10^3/uL (0.83-4.51); Absolute Neutrophil Count 11.8 X10^3/uL (2.0-7.7); Hypochromasia 1+; Lymphocyte # 0.43 X10^3/ul (0.83-4.51)
[2023-01-05] MEDS: Acyclovir 200 MG Capsule 400 MG PO ×2 (09:26→18:05)
[2023-01-05] MEDS: Doxazosin 4 MG Tablet PO (09:26)
[2023-01-05] MEDS: Potassium Chloride Oral Tablet 20 MEQ 60 MEQ PO (09:26)
[2023-01-05] MEDS: Pantoprazole Sodium 40 MG Tablet PO (09:26)
[2023-01-05] MEDS: Aspirin E.C. 81 MG Tablet PO (09:27)
[2023-01-05] MEDS: Tamsulosin HCl 0.4 MG Capsule PO (09:27)
[2023-01-05] MEDS: Enoxaparin 40 MG/0.4 ML Syringe SC (09:27)
[2023-01-05] MEDS: Metoprolol(XL)Succ 50 MG Tablet PO (09:27)
[2023-01-05] MEDS: Atorvastatin Calcium 20 MG Tablet PO (09:27)
[2023-01-05 10:03] LABS: LDH 412 U/L (87-241); Uric Acid 9.3 mg/dL (3.5-7.2)
[2023-01-05 10:15] LABS: Phosphorus 3.6 mg/dL (2.5-4.9)
[2023-01-05 11:33] LABS: Bedside Glucose 125 mg/dL (74-106)
--- NOTE | 2023-01-05 11:56 | PN_ITS ---
Subjective Subjective Patient seen and examined. He feels well and has no active complaints. Review of systems is otherwise negative. Cr has trended down to ~ 1.8. Objective Data Objective Data Vital Signs: Vital Signs Temp Pulse Resp BP Pulse Ox O2 Del Method 97.7 F L 55 L 16 126/64 H 93 Room Air 01/05/23 09:00 01/05/23 09:27 01/05/23 09:00 01/05/23 09:27 01/05/23 09:00 01/05/23 09:30 Oxygen Delivery Method Room Air Weight: 251 lb 1.704 oz Body Mass Index (BMI) 34.0 Intake & Output: Intake and Output for Last 24 Hours 01/03/23 01/04/23 01/05/23 23:59 23:59 23:59 Intake Total 340 / 340 1540 / 1540 Balance 340 / 340 1540 / 1540 Lab / Micro Data 01/05/23 05:41 01/05/23 05:41 Labs: Laboratory Results - last 24 hr 01/04/23 18:10: POC Glucose 203 H 01/04/23 19:40: Urine Creatinine 161.00 01/04/23 21:03: POC Glucose 223 H 01/05/23 05:40: POC Glucose 161 H 01/05/23 05:41: WBC 14.6 H, RBC 3.16 L, Hgb 8.8 L, Hct 27.1 L, MCV 85.8, MCH 27.8, MCHC 32.5, RDW Std Deviation 44.2 H, RDW Coeff of Dae 14.6, Plt Count 242, MPV 9.6, Neut % (Auto) Not Reportable, Absolute Neuts (auto) 11.8 H, Absolute Lymphs (auto) 0.43 L, Total Counted 100, Neutrophils % (Manual) 75 H, Band Neutrophils % 6 H, Lymphocytes % (Manual) 3 L, Monocytes % (Manual) 5, Metamyelocytes % 4 H, Myelocytes % 7 H, Diff Path Review May foll, Platelet Estimate ADEQUATE, Hypochromasia 1+, Anisocytosis 2+, Sodium 138, Potassium 3.0 L, Chloride 104, Carbon Dioxide 25.0, Anion Gap 9, BUN 22 H, Creatinine 1.82 H, Estim Creat Clear Calc 37.31, Est GFR (MDRD) Af Amer 47 L, Est GFR (MDRD) Non-Af 39 L, BUN/Creatinine Ratio 12.1, Glucose 160 H, Uric Acid 9.3 H, Calcium 7.7 L, Phosphorus 3.6, Lactate Dehydrogenase 412 H 01/05/23 11:15: POC Glucose 125 H Radiography Diagnostic Testing: Radiology Impression Abdomen/Pelvis CT 01/04/23 16:51 IMPRESSION: Significant regression in the retroperitoneal, mesenteric and bilateral inguinal adenopathy. No acute findings in the abdomen or pelvis. Nonobstructing right nephrolithiasis. Electronically Signed: Darrel Leiva MD at 17:47 EDT , Physical Exam Const alert, oriented x3 and no apparent distress General Appearance: cooperative HEENT normocephalic, head/scalp atraumatic, moist oral mucous membranes and oropharynx normal Eyes PERRL and EOMs intact bilaterally Neck no lymphadenopathy, supple and no JVD Lymph Lymphatic: no lymphadenopathy noted and no lymphedema noted Resp normal respiratory effort, normal air movement and clear to auscultation bilaterally Cardio regular rate, regular rhythm, S1 normal heart sound, S2 normal heart sound and no murmurs Palpation: normal PMI GI normal to inspection, nondistended, normoactive bowel sounds, soft to palpation, non-tender and non-distended Extremity normal capillary refill and no clubbing, cyanosis or edema General Extremity: no tenderness to palpation of joints or extremities Skin Skin Narrative: chemotherapy port in place Neuro CN's II-XII intact bilaterally, no focal motor deficits and no sensory deficits noted Motor Exam: strength 5/5 throughout Psych thought process normal, cooperative and affect normal Appearance: appropriate Assessment & Plan Assessment/Plan (1) Acute kidney injury: PLAN: Plan #Acute kidney injury * Cr s down to 1.8 from 2.34 yesterday * 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 Went to have his chemotherapy session today and labs showed elevated creatinine of 2.34. * After his first chemotherapy session about this a month ago, he developed tumor lysis syndrome and had to be treated at [facility] * Hydrate with IV fluids NS @ 125cc/hr. * CT of the abdomen and pelvis showed nonobstructing renal calculi and a stable prostate hypertrophy with mass effect on the bladder base. * nephrology consulted. Await rec's * Check FeUrea. * hydrochlorothiazide and losartan on hold. * * #Hypokalemia: * Potassium is 3 today. Will replace and trend. * #B cell lymphoma * Diagnosed about a month ago. Undergoing chemotherapy though he did have a session today because of elevated creatinine * Follows with Dr. Michael. * On allopurinol as he had tumor lysis syndrome after his first chemotherapy. * We will hold allopurinol for now due to renal impairment * on PO prednisone 10mg daily * #Hypertension: Hydrochlorothiazide and losartan on hold due to TRAM. IV hydralazine as needed for now. On metoprolol #History of BPH: On Flomax. CT of the abdomen and pelvis pending. #Type 2 diabetes mellitus: On metformin. Hold metformin because of TRAM. Insulin sliding scale. Accu-Cheks ACHS. DVT prophylaxis: lovenox renally dosed at 30mg sq daily Code status: full code * Charges/Coding Visit Charges Inpatient E&M: 32669 Subs Hosp L2
--- NOTE | 2023-01-05 13:25 | CASEMGMT ---
RN?CM?MUCKER COFFERDAM?CM?to room to meet with patient for initial transition planning/care coordination?assessment.?RN?CM?introduced self and role at [facility].? Pt voices understanding and consents to?assessment?at this time.? Pt up ad consuelo in room. in room visiting. Pt is A/O at this time and answers all questions appropriately.?? Care providers, pharmacy, and demographics verified/updated at this time. PCP: Dr Gonsales Specialists: Dr Michael-oncology, [facility]/cardiology Preferred Pharmacy: [facility] Insurance: [employer] Prescription Benefit:?Yes Living Will/HPOA:?Has both LW and HCPOA, which are both on file @ [facility]. is listed as primary POA. Son is 1st alternative. Pt and could not remember who was listed as 1st alternative. Copies of LW and HCPOA printed from e-chart and provided to pt and . Pt noticed his was incorrect on documents. Offered to have SW assist w/completing new AD, but he declines at this time, stating they will take care of it later. Pt and made aware they can complete w/SW as an OP when they decide they are ready. They voice understanding. LNOK: , Rachael. 3 adult children Living Arrangements: Lives w/ in 2-story home w/1-3 steps to enter. FFSU. Independent w/ADL's. They manages medications together. does home mgnt tasks. Transportation:?Pt states drives self and states no transportation concerns at this time.? also drives. DME: ?States has the following DME:?functioning glucometer w/supplies, BP cuff. ?Pt states no need for further DME at this time.? HHC/SNF: No hx SNF. Has had HHC in the past after CABG. Declines need for HHC and no needs identified. Pt wishes to return home and states has no concerns with going home at time of discharge. PLAN:??Home w/spousal support and discharge plans in place. Christal BSN?RN?CM
[2023-01-05 13:26] LABS: Pathologist Review Reviewed
--- NOTE | 2023-01-05 14:02 | PCM.CONS.R ---
Assessment & Plan Assessment/Plan (1) Acute kidney injury: PLAN: Acute renal failure. Baseline creatinine seems to be around 1.2-1.3. Had an episode of TRAM in the setting of tumor lysis syndrome, was admitted at [facility], now discharged with creatinine back to 1.3. Came back in with a creatinine of 2.4. Denies any obstructive symptoms. CT abdomen without any hydronephrosis. Urine analysis shows few leukocytes without any bacteria or nitrates. Denies taking NSAIDs. He is on high-dose steroids as part of chemo regimen. Even under the theoretical possibility of AIN, the prednisone should cover this. Blood pressure was as low as 80 systolic. Currently off all blood pressure medications. Apparently he lost about 30 pounds within the last 1 month or so. Most likely he does not need most of these blood pressure medications. I would hold all blood pressure medications for now. Add back only as needed, can be done as outpatient. Diffuse large B-cell lymphoma. Recently started chemotherapy. CT abdomen with significant shrinkage of lymph nodes. Called and spoke with Dr. Michael Discussed with hospitalist Dr Pickett HPI Consult Data Date of Consult: 01/05/23 HPI Narrative Reason for Consultation: TRAM HPI Narrative: PUJA RUTLEDGE, is a 78 M who presents to the hospital with TRAM. He was recently diagnosed with diffuse large cell lymphoma. Follows with Dr. Michael at [facility] center. He started treatment with POlatuzumab CHP here. He was admitted at [facility] with an episode of tumor lysis syndrome. Received rasburicase, discharged home on the . His baseline creatinine is around 1.2-1.3, at the time of recent hospitalization increased to 1.7-1.8. Since coming home he has not been feeling well. Apparently blood pressure was quite low, systolic around 84 also. She stopped taking all his blood pressure medications. Denies taking NSAIDs on a regular basis. No obstructive symptoms. Blood pressure is now better without any medications. He was originally scheduled for second dose of chemo yesterday but this was canceled due to acute renal failure. Currently feels okay. Denies any nausea, vomiting, abdominal pain, diarrhea. No obstructive symptoms. Review of systems negative except above [facility] Medical History (Updated 01/04/23 @ 17:01 by Almita Pinedo) ASD (atrial septal defect) Atherosclerotic heart disease of [place] coronary artery without angina pectoris Borderline diabetes mellitus Diabetes Essential hypertension Former smoker Gout Hyperlipidemia Morbid obesity with BMI of 40.0-44.9, adult Myocardial infarct NSTEMI (non-ST elevated myocardial infarction) Old myocardial infarction Paroxysmal atrial fibrillation TIA (transient ischemic attack) Home Medications allopurinol 100 mg tablet 100 mg PO DAILY 11/06/16 [History Last Taken 01/04/23] aspirin 81 mg tablet,delayed release 81 mg PO DAILY@0800 12/19/16 [History Last Taken 01/04/23] metformin 500 mg tablet 500 mg PO BIDCM 12/19/16 [History Last Taken 01/04/23] metoprolol succinate 50 mg tablet,extended release 24 hr 50 mg PO DAILY 12/19/17 [History Last Taken 01/04/23] atorvastatin 40 mg tablet 20 mg PO QDAY 03/28/18 [History Last Taken 01/03/23] losartan 100 mg tablet 100 mg PO DAILY 02/05/19 [History Last Taken Unknown] tamsulosin 0.4 mg capsule (Flomax) 0.4 mg PO DAILY 01/31/21 [History Last Taken 01/03/23] doxazosin 4 mg tablet 4 mg PO DAILY #90 tabs 02/13/22 [Rx Last Taken 01/03/23] hydrochlorothiazide 50 mg tablet 50 mg PO DAILY #90 tabs 02/13/22 [Rx Last Taken Unknown] potassium chloride 10 mEq tablet,extended release 20 meq (2 x 10 mEq) PO DAILY #180 tabs 02/13/22 [Rx Last Taken Unknown] acyclovir 400 mg tablet 400 mg PO Q12H 01/04/23 [History Last Taken 01/04/23] omeprazole 40 mg capsule,delayed release 40 mg PO DAILY 01/04/23 [History Last Taken 01/04/23] prednisone 50 mg tablet 100 mg PO DAILY 01/04/23 [History Last Taken 01/04/23] Allergy/AdvReac Type Severity Reaction Status Date / Time No Known Allergies Allergy Verified 01/04/23 16:39 Family History Mother Hypertension Father Heart disease Brother CAD (coronary artery disease) Hx of CABG Surgical History (Updated 01/04/23 @ 17:01 by Amlita Pinedo) Aortocoronary bypass status (~11/09/16) Hx of CABG Social History Smoking Status: Former smoker alcohol intake: current details: occasional substance use type: does not use Physical Exam Narrative Alert awake oriented x 3 no obvious distress no pallor no icterus no JVD s1s2 no murmurs lungs clear abdomen soft no organomegaly no edema no cyanosis Lab / Micro Data 01/05/23 05:41 01/05/23 05:41 Labs: Laboratory Results - last 24 hr 01/04/23 11:13: Diff Path Review Reviewed 01/04/23 18:10: POC Glucose 203 H 01/04/23 19:40: Urine Creatinine 161.00 01/04/23 21:03: POC Glucose 223 H 01/05/23 05:40: POC Glucose 161 H 01/05/23 05:41: WBC 14.6 H, RBC 3.16 L, Hgb 8.8 L, Hct 27.1 L, MCV 85.8, MCH 27.8, MCHC 32.5, RDW Std Deviation 44.2 H, RDW Coeff of Dae 14.6, Plt Count 242, MPV 9.6, Neut % (Auto) Not Reportable, Absolute Neuts (auto) 11.8 H, Absolute Lymphs (auto) 0.43 L, Total Counted 100, Neutrophils % (Manual) 75 H, Band Neutrophils % 6 H, Lymphocytes % (Manual) 3 L, Monocytes % (Manual) 5, Metamyelocytes % 4 H, Myelocytes % 7 H, Diff Path Review May foll, Platelet Estimate ADEQUATE, Hypochromasia 1+, Anisocytosis 2+, Sodium 138, Potassium 3.0 L, Chloride 104, Carbon Dioxide 25.0, Anion Gap 9, BUN 22 H, Creatinine 1.82 H, Estim Creat Clear Calc 37.31, Est GFR (MDRD) Af Amer 47 L, Est GFR (MDRD) Non-Af 39 L, BUN/Creatinine Ratio 12.1, Glucose 160 H, Uric Acid 9.3 H, Calcium 7.7 L, Phosphorus 3.6, Lactate Dehydrogenase 412 H 01/05/23 11:15: POC Glucose 125 H Radiology Impression Abdomen/Pelvis CT 01/04/23 16:51 IMPRESSION: Significant regression in the retroperitoneal, mesenteric and bilateral inguinal adenopathy. No acute findings in the abdomen or pelvis. Nonobstructing right nephrolithiasis. Electronically Signed: Darrel Leiva MD at 17:47 EDT ,
[2023-01-05 16:31] LABS: Bedside Glucose 118 mg/dL (74-106)
[2023-01-05 22:10] LABS: Bedside Glucose 167 mg/dL (74-106)
[2023-01-06 04:30] VITALS: BP 129/59; PULSE 60; RESP 14; TEMP 36.7; O2SAT 99
[2023-01-06 06:46] LABS: Bedside Glucose 125 mg/dL (74-106)
[2023-01-06] MEDS: Acyclovir 200 MG Capsule 400 MG PO (06:56)
[2023-01-06] MEDS: Aspirin E.C. 81 MG Tablet PO (06:56)
--- NOTE | 2023-01-06 07:40 | PN.HOSP_ITS ---
Reason for Visit Reason for Visit: Diagnoses Acute kidney failure, unspecified (01/04/23) Retention of urine, unspecified (01/04/23) Objective Data Objective Data Vital Signs: Vital Signs Temp Pulse Resp BP Pulse Ox O2 Del Method 98.0 F 60 14 129/59 H 99 Room Air 01/06/23 04:30 01/06/23 04:30 01/06/23 04:30 01/06/23 04:30 01/06/23 04:30 01/06/23 04:30 Oxygen Delivery Method Room Air Weight: 113.9 kg Body Mass Index (BMI) 34.0 Intake & Output: Intake and Output for Last 24 Hours 01/04/23 01/05/23 01/06/23 23:59 23:59 23:59 Intake Total 340 / 340 2690 / 3040 550 / 550 Balance 340 / 340 2690 / 3040 550 / 550 Lab / Micro Data 01/05/23 05:41 01/05/23 05:41 Labs: Laboratory Results - last 24 hr 01/04/23 11:13: Diff Path Review Reviewed 01/05/23 05:41: Absolute Neuts (auto) 11.8 H, Absolute Lymphs (auto) 0.43 L, Total Counted 100, Neutrophils % (Manual) 75 H, Band Neutrophils % 6 H, Lymphocytes % (Manual) 3 L, Monocytes % (Manual) 5, Metamyelocytes % 4 H, Myelocytes % 7 H, Diff Path Review May , Platelet Estimate ADEQUATE, Hypochromasia 1+, Anisocytosis 2+, Uric Acid 9.3 H, Phosphorus 3.6, Lactate Dehydrogenase 412 H 01/05/23 11:15: POC Glucose 125 H 01/05/23 15:57: POC Glucose 118 H 01/05/23 20:29: POC Glucose 167 H 01/06/23 05:57: POC Glucose 125 H Assessment & Plan Assessment/Plan (1) Acute kidney injury: PLAN: Plan #Acute kidney injury * Cr s down to 1.8 from 2.34 yesterday * 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 Went to have his chemotherapy session today and labs showed elevated creatinine of 2.34. * After his first chemotherapy session about this a month ago, he developed tumor lysis syndrome and had to be treated at [facility] * Hydrate with IV fluids NS @ 125cc/hr. * CT of the abdomen and pelvis showed nonobstructing renal calculi and a stable prostate hypertrophy with mass effect on the bladder base. * nephrology consulted. Await rec's * Check FeUrea. * hydrochlorothiazide and losartan on hold. * * #Hypokalemia: * Potassium is 3 today. Will replace and trend. * #B cell lymphoma * Diagnosed about a month ago. Undergoing chemotherapy though he did have a session today because of elevated creatinine * Follows with Dr. Michael. * On allopurinol as he had tumor lysis syndrome after his first chemotherapy. * We will hold allopurinol for now due to renal impairment * on PO prednisone 10mg daily * #Hypertension: Hydrochlorothiazide and losartan on hold due to TRAM. IV hydrala zine as needed for now. On metoprolol #History of BPH: On Flomax. CT of the abdomen and pelvis pending. #Type 2 diabetes mellitus: On metformin. Hold metformin because of TRAM. Insulin sliding scale. Accu-Cheks ACHS. DVT prophylaxis: lovenox renally dosed at 30mg sq daily Code status: full code *
[2023-01-06 08:00] LABS: Hematocrit 26.8 % (40-54); Hemoglobin 8.6 g/dL (13.0-16.5); Mean Corp Hgb Conc 32.1 g/dL (32-36); Mean Corpuscular Hgb 28.1 pg (27.0-32.0); Mean Corpuscular Volume 87.6 fL (80-94); Mean Platelet Vol. 9.3 fl (6.2-12.0); POSITIVE COUNT YES; POSITIVE MORPHOLOGY YES; Platelet Count 217 K/mm3 (150-450); RBC Distribution Width CV 15.3 % (11.6-14.6); RBC Distribution Width SD 46.4 fl (35.1-43.9); Red Blood Count 3.06 M/mm3 (4.6-6.2)
[2023-01-06 08:03] LABS: Differential Indicated MANUAL DIFF
[2023-01-06 08:49] LABS: Blast 1 % (0-0); Hypersegmented Neutrophils 1+; Lymphocyte 15 % (19-41); Metamyelocyte 5 % (0-1); Monocyte 4 % (0-10); Neutrophil-Band 4 % (0-5); Neutrophil-Segmented 70 % (47-70); Platelet Estimate ADEQUATE (ADEQ); Promyelocyte 1 % (0-0); Red Cell Morphology NORM C+C NORMAL (NORM C&C); Total Cells Counted 100 (MANUAL DIFF)
[2023-01-06 08:50] LABS: Absolute Lymphocyte Count 1.49 X10^3/uL (0.83-4.51); Absolute Neutrophil Count 7.4 X10^3/uL (2.0-7.7); Lymphocyte # 1.49 X10^3/ul (0.83-4.51); Neutrophil # 7.39 X10^3/uL (2.7-7.7)
[2023-01-06 09:12] VITALS: BP 158/80; PULSE 47; RESP 16; TEMP 37.2; O2SAT 99
[2023-01-06 10:49] LABS: ALB/GLOB Ratio 0.6 RATIO (0.9-2.4); AST(SGOT) 37 U/L (15-37); Alanine Aminotransfer ALT/SGPT 39 U/L (16-61); Alkaline Phosphatase 81 U/L (45-117); Anion Gap 7 (5-15); BUN 20 mg/dL (7-18); Chloride 109 mmol/L (98-107); Creatinine, Serum 1.66 mg/dL (0.70-1.30); EST Glomerular Filtration Rate 43 mL/min (>60); Est Glom Filt Rate - Afr Amer 52 mL/min (>60); Globulin 3.3 g/dL (2.2-4.2); Glucose 155 mg/dL (74-106); Protein, Total 5.3 g/dL (6.4-8.2); Sodium Level 141 mmol/L (136-145)
[2023-01-06] MEDS: Tamsulosin HCl 0.4 MG Capsule PO (10:49)
[2023-01-06] MEDS: Enoxaparin 40 MG/0.4 ML Syringe SC (10:49)
[2023-01-06] MEDS: Pantoprazole Sodium 40 MG Tablet PO (10:49)
[2023-01-06] MEDS: Atorvastatin Calcium 20 MG Tablet PO (10:49)
[2023-01-06] MEDS: Doxazosin 4 MG Tablet PO (10:50)
--- NOTE | 2023-01-06 10:54 | PCM.DC.SUM ---
Providers Date of Admission: 01/04/23 Date of Discharge: 01/06/23 Primary Care Physician: Dr. Azael Gonsales MD Consultations 01/04/23 16:51 Consult: Nephrology Routine Consulting Provider: Samson Hurtado Reason for Consult: TRAM EMERGENT Consult: No MD Notified: Yes Date Notified: 01/04/23 Time Notified: 16:20 Method of Notification: Text Reason For Visit: TRAM Diagnosis Discharge Diagnosis (1) Acute kidney injury: Status: Acute Code(s): N17.9 - Acute kidney failure, unspecified Medications at Discharge Home Medications allopurinol 100 mg tablet 100 mg PO DAILY 11/06/16 aspirin 81 mg tablet,delayed release 81 mg PO DAILY@0800 12/19/16 metformin 500 mg tablet 500 mg PO BIDCM 12/19/16 metoprolol succinate 50 mg tablet,extended release 24 hr 50 mg PO DAILY 12/19/17 atorvastatin 40 mg tablet 20 mg PO QDAY 03/28/18 tamsulosin 0.4 mg capsule (Flomax) 0.4 mg PO DAILY 01/31/21 doxazosin 4 mg tablet 4 mg PO DAILY #90 tabs 02/13/22 potassium chloride 10 mEq tablet,extended release 20 meq (2 x 10 mEq) PO DAILY #180 tabs 02/13/22 acyclovir 400 mg tablet 400 mg PO Q12H 01/04/23 omeprazole 40 mg capsule,delayed release 40 mg PO DAILY 01/04/23 prednisone 50 mg tablet 100 mg PO DAILY 01/04/23 Hospital Course Summary of Care Provided Minutes Spent on Discharge: 35 Hospital Course: Patient is a 78-year-old gentleman with history of B-cell lymphoma on chemo presented with worsening kidney function Acute kidney injury ? Admitted to regular nursing floor potential nephrotoxic medications including HCTZ and losartan discontinued managed with IV fluids kidney function did improve at the time of discharge patient to follow-up with primary care physician for repeat labs 2. Hypokalemia ? Corrected per protocol 3. B-cell lymphoma ? Undergoing chemo. Patient to follow-up with Dr. Michael for subsequent care 4. Essential hypertension ? HCTZ and losartan held given his impaired kidney function patient to follow-up with PCP 4. BPH ? On Flomax continued 5. Diabetes mellitus type 2 ? Metformin was held resumed on discharge 6. DVT prophylaxis ? On Lovenox which was adjusted based on kidney function Physical Exam Narrative GENERAL: cooperative HEENT: Atraumatic; normocephalic EYES; Anicteric, Normal Conjunctiva NECK; supple, normal thyroid, RESPIRATORY: Diminished to auscultation CARDIOVASCULAR: Regular S1 S2, GI: soft, normoactive bowel sounds, : No Renal angle tenderness; EXTREMITIES: No edema, no clubbing, MUSCULOSKELETAL: no muscle wasting NEURO: Awake; no lateralizing signs. SKIN: No Rash PSYCH; Flat affect Weight / BMI Weight Weight: 113.9 kg Body Mass Index (BMI) 34.0 ABG / Lab / Microbiology Data 01/06/23 07:48 01/06/23 09:55 Laboratory: Laboratory Results - last 24 hr 01/04/23 11:13: Diff Path Review Reviewed 01/05/23 11:15: POC Glucose 125 H 01/05/23 15:57: POC Glucose 118 H 01/05/23 20:29: POC Glucose 167 H 01/06/23 05:57: POC Glucose 125 H 01/06/23 07:48: WBC 10.0, RBC 3.06 L, Hgb 8.6 L, Hct 26.8 L, MCV 87.6, MCH 28.1, MCHC 32.1, RDW Std Deviation 46.4 H, RDW Coeff of Dae 15.3 H, Plt Count 217, MPV 9.3, Neut % (Auto) Not Reportable, Absolute Neuts (auto) 7.4, Absolute Lymphs (auto) 1.49, Total Counted 100, Neutrophils % (Manual) 70, Band Neutrophils % 4, Lymphocytes % (Manual) 15 L, Monocytes % (Manual) 4, Metamyelocytes % 5 H, Promyelocytes % 1 H, Blast Cells % 1 H*, Diff Path Review May foll, Hypersegmented Neuts 1+ H, Platelet Estimate ADEQUATE, RBC Morphology NORM C+C 01/06/23 09:55: Sodium 141, Potassium 3.0 L, Chloride 109 H, Carbon Dioxide 25.0, Anion Gap 7, BUN 20 H, Creatinine 1.66 H, Estim Creat Clear Calc 40.90, Est GFR (MDRD) Af Amer 52 L, Est GFR (MDRD) Non-Af 43 L, BUN/Creatinine Ratio 12.0, Glucose 155 H, Calcium 8.0 L, Total Bilirubin 0.30, AST 37, ALT 39, Alkaline Phosphatase 81, Total Protein 5.3 L, Albumin 2.0 L, Globulin 3.3, Albumin/Globulin Ratio 0.6 L Microbiology: Microbiology 01/04/23 11:13 Urine, Clean Catch Urine Culture - Preliminary Culture exhibits no growth. D/C Instructions Discharge Diet: 1800 Calorie Control Diet Discharge Activity: Return to Normal Activity Call your doctor if you observe: Fever of 101 or Higher, Shortness of breath, Fainting spells and Chest pain Meaningful Use Info Meaningful Use Diagnoses (Choose all that apply): None applicable Discharge Plan Admission Admit Date/Time: 01/04/23 16:17 Attending Provider: Lonnie Crenshaw Primary Care Provider: Azael Gonsales Consulting Providers: Samson Hurtado; Anjelica Pickett Discharge Orders/Prescriptions Prescriptions: Continued metoprolol succinate 50 mg tablet extended release 24 hr 50 mg PO DAILY tamsulosin [Flomax] 0.4 mg capsule 0.4 mg PO DAILY allopurinol 100 MG tablet 100 mg PO DAILY Patient Comments: gout metformin 500 MG tablet 500 mg PO BIDCM aspirin 81 MG tablet 81 mg PO DAILY@0800 acyclovir 400 mg tablet 400 mg PO Q12H Patient Comments: Take 1 tablet by mouth twice daily. omeprazole 40 mg capsule,delayed release(DR/EC) 40 mg PO DAILY Patient Comments: TAKE 1 CAPSULE BY MOUTH DAILY prednisone 50 mg tablet 100 mg PO DAILY Patient Comments: Take 2 tablets by mouth once daily. Take 2 tablets with breakfast on days 1-5 of each cycle. atorvastatin 40 mg tablet 20 mg PO QDAY potassium chloride 10 mEq tablet extended release 20 meq PO DAILY Qty: 180 3RF doxazosin 4 mg tablet 4 mg PO DAILY Qty: 90 3RF Discontinued losartan 100 mg tablet 100 mg PO DAILY hydrochlorothiazide 50 mg tablet 50 mg PO DAILY Qty: 90 3RF Referrals / Follow Up: Azael Gonsales MD [Primary Care Provider] - Within 1 Week (For repeat BMP) Disposition Disposition (needs filled in before D/C Order can be placed): Home, Self Care Charges/Coding Visit Charges Inpatient E&M: 97690 Disch Hosp >30min
[2023-01-06] MEDS: Insulin Lispro 100 UNIT/ML INSULN.PEN SC (11:28)
[2023-01-06] MEDS: Potassium Chloride Oral Tablet 20 MEQ 40 MEQ PO (11:28)
[2023-01-06 11:47] LABS: Bedside Glucose 150 mg/dL (74-106)
[2023-01-06] MEDS: 0.9% Saline Lock 10 ML Syringe IV (12:35)
[2023-01-06 12:43] VITALS: BP 143/78; PULSE 53; RESP 18; TEMP 37; O2SAT 98
[2023-01-08 12:53] LABS: Pathologist Review Reviewed
[2023-01-08 13:03] LABS: Pathologist Review Reviewed
== END 2023-01-06 13:10 | disposition home or self-care (01) | DRG 683 ==
LOC: ED 15:48 → PCU 01-05 09:42 → MS3 01-06 10:59 → PCU 01-16 15:36
PROVIDERS: Internal Medicine Nephrology; Admitting Provider Student in an Organized Health Care Education/Training Program; Emergency Provider Emergency Medicine; PCP Family Medicine; Visit Provider Internal Medicine
DX: N17.9 Acute kidney failure, unspecified (principal); C85.10 Unspecified B-cell lymphoma, unspecified site; I48.0 Paroxysmal atrial fibrillation; E11.9 Type 2 diabetes mellitus without complications; I10 Essential (primary) hypertension; E87.6 Hypokalemia; I25.10 Atherosclerotic heart disease of native coronary artery without angina pectoris; I25.2 Old myocardial infarction; Z79.82 Long term (current) use of aspirin; Z79.84 Long term (current) use of oral hypoglycemic drugs; Z79.899 Other long term (current) drug therapy; Z86.73 Personal history of transient ischemic attack (TIA), and cerebral infarction without residual deficits; Z87.891 Personal history of nicotine dependence; N40.0 Benign prostatic hyperplasia without lower urinary tract symptoms
CPT/HCPCS: 36415; 36591; 74176; 80048; 80053; 81001; 82570; 82962; 83615; 84100; 84550; 85025; 87086; 96361; 96365; 96366; 96372; 97802; 99221; 99283; J7030; A4216; G0378

== ENCOUNTER 2023-03-02 07:58 | Outpatient (CLI) | payer MEDICARE, MEDICAID, SELFPAY ==
[2023-03-02] VITALS (7 sets, daily range): BP systolic 105–131; BP diastolic 48–60; PULSE 52–63; RESP 16; TEMP 35.5–36.1; O2SAT 98–100; BMI 34.5
[2023-03-02] MEDS: 0.9% NaCl Peripheral Flush Adult/Peds IV (12:40)
== END 2023-03-02 07:59 | disposition home or self-care (01) ==
PROVIDERS: PCP Family Medicine; Referring Provider Internal Medicine Hematology & Oncology; Visit Provider Internal Medicine Hematology & Oncology
DX: D64.81 Anemia due to antineoplastic chemotherapy (principal)
CPT/HCPCS: 36430; 86850; 86900; 86901; 86920; 86922; J7040; P9016; A4216

== ENCOUNTER → 2023-04-10 | Outpatient (CLI) | payer MEDICARE, MEDICAID, SELFPAY ==
--- NOTE | 2023-04-10 09:00 | PET_ITS ---
EXAMINATION: FDG PET/CT ? INDICATIONS: 78-year-old male with an apparent history of lymphoma, presenting for restaging examination. ? COMPARISON EXAMINATION: FDG-PET CT study dated 12/05/2022. ? TECHNIQUE: Following the intravenous administration of 12.65 mCi of F-18 deoxyglucose via the Mediport injection site, multiplanar image acquisitions of the head, neck, chest, abdomen and pelvis to the level of the midthigh, obtained at one-hour post radiopharmaceutical administration contemporaneously interpreted with the current CT of the chest, abdomen and pelvis dated 04/10/2023 and prior FDG-PET CT study dated 12/05/2022 via coregistration reveal: SERUM GLUCOSE LEVEL:? 130 mg/dL? HEIGHT:?? 70 inches WEIGHT:?? 254 pounds ? FINDINGS: ? HEAD/NECK:? There is no evidence of abnormal increased glucose metabolism in the pharyngeal mucosal space, parapharyngeal space, oropharynx, bilateral-lateral and anterior neck, hypopharynx and distribution of the larynx. The previously identified bilateral-lateral and anterior neck hypermetabolic foci are not apparent on the current examination. ? The visualized portion of the cerebral cortical-subcortical structures demonstrate symmetric and preserved glucose metabolism. ? CHEST:? There is no quantitative scintigraphic evidence of abnormal increased glucose metabolism within the context of the bilateral hemithorax pulmonary parenchyma, right and left hemithorax at the pleural interface, mediastinal structures, and left-right thoracic perihilum. Focal increased radiopharmaceutical concentration is manifest in the right anterior chest wall associated with Port-A-Cath injection site. The prior defined mediastinal and bilateral axillary hypermetabolic foci are not apparent on the current examination. ? CT of the chest demonstrates the following anatomic characteristics: On review of CT of the chest, there is no definitive interval change compared to the study dated 12/05/2022. A loculated left hemithorax pleural effusion is nonglucose avid. ? ABDOMEN/PELVIS:? Normal physiologic distribution of the radiopharmaceutical is identified in the hepatic and splenic parenchyma, both renal units, urinary bladder, and visualized intestinal tract. The prior defined splenic parenchymal, abdominal and pelvic, retroperitoneal and mesenteric, as well as bilateral inguinal hypermetabolic foci are not apparent on the current examination. ? CT of the abdomen and pelvis is remarkable for the following: On review of CT of the abdomen/pelvis, there is no definitive interval change compared to the study dated 12/05/2022. ? SKELETAL:? There is no evidence of quantitatively significant enhanced glucose metabolism on meticulous inspection of the appendicular and axial skeletal structures. ? Degenerative changes defined in the thoracic and lumbar spine demonstrate no evidence of increased glucose metabolism. There are no sclerotic, mixed sclerotic-lytic, or primarily lytic changes defined in the axial skeletal structures with evidence of increased FDG uptake. ? PET/PET/CT Tumor Base -Thigh Subs IMPRESSION: 1. NEGATIVE EXAMINATION. There is no definitive quantitative scintigraphic evidence of recurrent-viable neoplasm. 2. There is interim resolution of all prior defined hypermetabolic foci as defined above. 3. Overall, compared to the prior FDG-PET CT study dated 12/05/2022, there is current absence of defined viable neoplastic disease.? Electronic Signature Kevin Newell D.O. Accurate Quantification of SUVs and standardized [place] scores specific to lymphoma FDG PET-CT study interpretation for this report are calculated using the exclusive [employer]. ([place].S. Patent No. [id number] [phone] [place] patent [phone]). Standardization and correction of the FDG SUV metric via [employer] technology allow for vendor non-specific objective quantitative examination comparison and optimization of the sensitivity and specificity of the FDG PET-CT examination. [email or web address] Electronically Signed: Kevin Newell DO at 23:51 EST ,
== END | disposition home or self-care (01) ==
PROVIDERS: PCP Family Medicine; Referring Provider Internal Medicine Hematology & Oncology; Visit Provider Internal Medicine Hematology & Oncology
DX: M79.89 Other specified soft tissue disorders (principal); C83.38 Diffuse large B-cell lymphoma, lymph nodes of multiple sites
CPT/HCPCS: 78815; A9552; A4216

== ENCOUNTER 2023-04-17 13:26 | Emergency (ER) | payer MEDICARE, MEDICAID, SELFPAY ==
[2023-04-17 13:27] VITALS: PULSE 69; RESP 19; TEMP 36.6; BMI 33.3
[2023-04-17 13:33] VITALS: BP 132/65; PULSE 65; RESP 18; O2SAT 100
[2023-04-17] MEDS: 0.9% Normal Saline (1000mL) 1,000 ML 1000 ML IV ×2 (13:54→17:16)
--- NOTE | 2023-04-17 13:55 | EX.ED.DYSGE1 ---
HPI History of Present Illness Chief Complaint: Nausea/Vomiting/Diarrhea Detail of Chief Complaint: Profuse diarrhea Informant: patient Onset/Context/Timing Onset: Today and Hours Context: Sudden Onset Timing: Intermittent Quality: Numerous loose watery stools, x 10 Location: GI Current Severity: Severe Maximum Severity: Severe Worsened by: Patient reports this has occurred after chemotherapy. Relieved by: Nothing Associated Symptoms Associated Symptoms: Dry mouth, thirst, lightheadedness Narrative Narrative: Patient is a 78-year-old male with history of Hodgkin's lymphoma who had chemotherapy 3 weeks ago. He states he normally gets diarrhea after the chemotherapy. He is also had diarrhea 1 to 2 weeks after chemotherapy. He received his last dose of chemo 3 weeks ago. He is scheduled for an outpatient PET scan. He denies fever, chills or night sweats. He denies headache, visual, ocular auditory symptoms. He denies cardiac or respiratory symptoms other than the orthostatic hypotensive symptoms. He denies dysuria, frequency, urgency or hematuria. He denies blood or mucus in his stool. He denies history of colitis or inflammatory bowel disorder. 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 diabetes mellitus Diabetes Essential hypertension Former smoker Gout Hyperlipidemia Lymphoma Morbid obesity with BMI of 40.0-44.9, adult Myocardial infarct NSTEMI (non-ST elevated myocardial infarction) Old myocardial infarction Paroxysmal atrial fibrillation TIA (transient ischemic attack) Home Medications allopurinol 100 mg tablet 100 mg PO DAILY 11/06/16 [History Last Taken 01/04/23] aspirin 81 mg tablet,delayed release 81 mg PO DAILY@0800 12/19/16 [History Last Taken 01/04/23] metformin 500 mg tablet 500 mg PO BIDCM 12/19/16 [History Last Taken 01/04/23] metoprolol succinate 50 mg tablet,extended release 24 hr 50 mg PO DAILY 12/19/17 [History Last Taken 01/04/23] atorvastatin 40 mg tablet 20 mg PO QDAY 03/28/18 [History Last Taken 01/03/23] tamsulosin 0.4 mg capsule (Flomax) 0.4 mg PO DAILY 01/31/21 [History Last Taken 01/03/23] acyclovir 400 mg tablet 400 mg PO Q12H 01/04/23 [History Last Taken 01/04/23] omeprazole 40 mg capsule,delayed release 40 mg PO DAILY 01/04/23 [History Last Taken 01/04/23] prednisone 50 mg tablet 100 mg PO DAILY 01/04/23 [History Last Taken 01/04/23] doxazosin 4 mg tablet See Rx Instructions .Route .COMPLEX #90 tabs 01/29/23 [Rx Last Taken Unknown] potassium chloride 10 mEq tablet,extended release See Rx Instructions .Route .COMPLEX #180 tabs 01/29/23 [Rx Last Taken Unknown] Allergy/AdvReac Type Severity Reaction Status Date / Time No Known Allergies Allergy Verified 04/17/23 13:31 Family History Mother Hypertension Father Heart disease Brother CAD (coronary artery disease) Hx of CABG Surgical History Aortocoronary bypass status (~11/09/16) Hx of CABG Social History (Updated 04/17/23 @ 13:[address] Hai Alvarado MD) household members: spouse Smoking Status: Former smoker alcohol intake: current details: occasional substance use type: does not use ROS ROS ED Constitutional Constitutional ED: Denies chills, fever(s), subjective or sweats Eyes Eyes: Denies blurry vision, change in vision or diplopia ENT ENT ED: Denies ear pain, rhinorrhea or sore throat Cardiovascular Cardiovascular: Denies chest pain, palpitations or racing heartbeat Respiratory/Chest Respiratory/Chest: Denies cough, dyspnea or dyspnea on exertion Gastrointestinal Gastrointestinal: Reports diarrhea and nausea; Denies abdominal pain, constipation, melena or vomiting Genitourinary Genitourinary ED: Denies dysuria, hematuria or urinary frequency Musculoskeletal Musculoskeletal: Denies arthralgias or myalgias Integumentary Denies abscess or rash Neurologic Neurologic: Reports weakness; Denies headache(s) or paresthesias Endocrine Endocrinology: Denies cold intolerance or heat intolerance Hematologic/Lymphatic Hematologic/Lymphatic: Reports systems reviewed and no addt'l complaints, except as documented EXAM Physical Exam Narrative Exam Narrative: Vital signs are unremarkable. Blood pressure is slightly elevated. Const Vital Signs: 04/17/23 13:27 04/17/23 13:33 04/17/23 15:21 Temperature 97.8 F Temperature Source Oral Pulse Rate 69 65 58 L Respiratory Rate 19 H 18 16 Blood Pressure 132/65 H 133/67 H Blood Pressure Mean 87 89 Pulse Ox 100 98 Oxygen Delivery Method Room Air Room Air Room Air 04/17/23 17:00 04/17/23 17:59 Temperature Temperature Source Pulse Rate 59 L 58 L Respiratory Rate 16 Blood Pressure 149/74 H 152/73 H Blood Pressure Mean 99 99 Pulse Ox 97 Oxygen Delivery Method Room Air Positive well nourished and well developed General Appearance ED: well developed, NAD and pallor; Negative for cyanotic or diaphoretic HEENT Reports dry mucous membranes HEENT Narrative: Is atraumatic and normocephalic. Ears are normal. Nares are patent. Posterior pharynx unremarkable. Uvula is midline. Mouth ED: Yes dry mucous membranes Mouth: dry mucous membranes Eyes PERRL and EOMs intact bilaterally General Eye ED: Negative for pale conjunctiva or scleral icterus Neck no lymphadenopathy, supple and no JVD Chest Wall inspection of chest normal and palpation of chest normal Resp No normal respiratory effort and No clear to auscultation bilaterally Resp Narrative: Patient has a port right subclavian region. There is no evidence of infection. Cardio regular rate, regular rhythm, S1 normal heart sound, S2 normal heart sound and no murmurs GI normal to inspection, nondistended, normoactive bowel sounds, non-tender, non-distended and no masses; Negative for hepatosplenomegaly Back/Spine no CVA tenderness Extremity normal to inspection General Extremety ED: Negative for edema General Extremity: Negative for edema Neuro oriented x3, CN's II-XII intact bilaterally and no sensory deficits noted Sensorium / Orientation: alert Psych mental status grossly normal Skin no rashes or lesions noted, no wounds and No skin turgor normal General Skin Exam: pallor; Negative for elasticity normal or jaundice MDM MDM MDM Narrative Medical decision making narrative: Presents with diffuse diarrhea. Concern patient is dehydrated. Will obtain basic metabolic panel to assess renal function and rule out hypokalemia. CBC to assess H&H since he appears pale and white count. 1 L of normal saline was ordered. History & Record Review Additional record(s) reviewed:: Prior inpatient record (The beginning of December patient had a 1 day stay for diarrhea with acute kidney injury and hypokalemia. Patient has B-cell lymphoma per documentation.), Prior ED visit and Prior labs Lab Data Attestation: I reviewed the patient's lab results. Lab results narrative: Count is elevated with shift. There is no bandemia. Patient does have mild anemia. Electrolyte panel is remarkable for glucose of 153 with a normal CO2 anion gap. BUN to creatinine ratio is normal. Labs: Laboratory Results - last 24 hr 04/17/23 13:55 WBC 15.7 H RBC 3.89 L Hgb 10.8 L Hct 36.8 L MCV 94.6 H MCH 27.8 MCHC 29.3 L RDW Std Deviation 54.9 H RDW Coeff of Dae 15.9 H Plt Count 313 MPV 9.8 Immature Gran % (Auto) 0.900 Neut % (Auto) 90.4 H Lymph % (Auto) 3.1 L Power % (Auto) 4.5 Eos % (Auto) 0.8 Baso % (Auto) 0.3 Absolute Neuts (auto) 14.2 H Absolute Lymphs (auto) 0.49 L Nucleated RBC % 0 Differential Comment SCANNED Sodium 144 Potassium 3.5 Chloride 112 H Carbon Dioxide 23.0 Anion Gap 9 BUN 18 Creatinine 1.03 Estim Creat Clear Calc 65.92 Est GFR (MDRD) Af Amer 90 Est GFR (MDRD) Non-Af 74 BUN/Creatinine Ratio 17.5 Glucose 153 H Calcium 8.8 Management Discussion w/another healthcare provider: Senior [employer] Developer (Dr. Rey she was made aware of his presentation. He will talk to patient tomorrow at 10 AM.) Additional Tests and Interventions Additional Tests or Interventions: Since been cleaned twice because of diarrhea in the department. Since patient has elevated white count with watery stool will obtain stool for enteric pathogens, blood and fecal leukocytes. Leukocytes and blood negative. When patient was reassessed at 1700. He informed that his daughter and son-in-law that were visiting this past weekend both have diarrhea. Suspect this is a viral gastroenteritis. Patient did receive 1 L normal saline. He has not urinated. Will order second liter of normal saline. He is scheduled to see Dr. Suresh Michael at [address] Michael in the event that he require additional fluids tomorrow. Discharge Plan Triage Chief Complaint: Nausea/Vomiting/Diarrhea ED Provider: Hai Alvarado Dx/Rx/DC Orders Clinical Impression: Acute diarrhea, Aortocoronary bypass status, Atherosclerotic heart disease of [place] coronary artery without angina pectoris, Acute dehydration, B-cell lymphoma Instructions: ED Diarrhea, Unknown Cause Prescriptions: No Action metoprolol succinate 50 mg tablet extended release 24 hr 50 mg PO DAILY tamsulosin [Flomax] 0.4 mg capsule 0.4 mg PO DAILY allopurinol 100 MG tablet 100 mg PO DAILY Patient Comments: gout metformin 500 MG tablet 500 mg PO BIDCM aspirin 81 MG tablet 81 mg PO DAILY@0800 acyclovir 400 mg tablet 400 mg PO Q12H Patient Comments: Take 1 tablet by mouth twice daily. omeprazole 40 mg capsule,delayed release(DR/EC) 40 mg PO DAILY Patient Comments: TAKE 1 CAPSULE BY MOUTH DAILY prednisone 50 mg tablet 100 mg PO DAILY Patient Comments: Take 2 tablets by mouth once daily. Take 2 tablets with breakfast on days 1-5 of each cycle. atorvastatin 40 mg tablet 20 mg PO QDAY doxazosin 4 mg tablet See Rx Instructions .ROUTE .COMPLEX Qty: 90 3RF Dose Instruction: TAKE 1 TABLET BY MOUTH DAILY Rx Instructions: TAKE 1 TABLET BY MOUTH DAILY potassium chloride 10 mEq tablet extended release See Rx Instructions .ROUTE .COMPLEX Qty: 180 3RF Dose Instruction: TAKE 2 TABLETS BY MOUTH DAILY Rx Instructions: TAKE 2 TABLETS BY MOUTH DAILY Primary Care Provider: Azael Gonsales Referrals: Suresh Michael DO [Med Staff - Active Staff] - Keep Esdras appointment Azael Gonsales MD [Primary Care Provider] - Disposition Disposition: Home, Self Care
[2023-04-17 14:04] LABS: Absolute Lymphocyte Count 0.49 X10^3/uL (0.83-4.51); Absolute Neutrophil Count 14.2 X10^3/uL (2.0-7.7); Basophil# 0.04 X10^3/uL; Basophil% 0.3 % (0-1); Eosinophil# 0.13 X10^3/uL; Eosinophils% 0.8 % (0-5); Hematocrit 36.8 % (40-54); Hemoglobin 10.8 g/dL (13.0-16.5); Lymphocyte # 0.49 X10^3/ul (0.83-4.51); Lymphocyte % 3.1 % (19-41); Mean Corp Hgb Conc 29.3 g/dL (32-36); Mean Corpuscular Hgb 27.8 pg (27.0-32.0); Mean Corpuscular Volume 94.6 fL (80-94); Mean Platelet Vol. 9.8 fl (6.2-12.0); Monocyte# 0.71 X10^3/uL; Monocyte% 4.5 % (0-10); NRBC Flagged by Analyzer 0 % (0-5); Neutrophil # 14.17 X10^3/uL (2.7-7.7); Neutrophil % 90.4 % (47-70); POSITIVE DIFFERENTIAL YES; Platelet Count 313 K/mm3 (150-450); RBC Distribution Width CV 15.9 % (11.6-14.6); RBC Distribution Width SD 54.9 fl (35.1-43.9); Red Blood Count 3.89 M/mm3 (4.6-6.2); White Blood Count 15.7 K/mm3 (4.4-11.0)
[2023-04-17 14:07] LABS: Differential Indicated SCAN CRITERIA MET
[2023-04-17 14:21] LABS: Anion Gap 9 (5-15); BUN 18 mg/dL (7-18); BUN/Creat Ratio 17.5 RATIO (10-20); Calcium,Total 8.8 mg/dL (8.5-10.1); Chloride 112 mmol/L (98-107); Creatinine, Serum 1.03 mg/dL (0.70-1.30); EST Glomerular Filtration Rate 74 mL/min (>60); Est Glom Filt Rate - Afr Amer 90 mL/min (>60); Estimated Creatinine Clearance 65.92 ml/min; Glucose 153 mg/dL (74-106); Potassium 3.5 mmol/L (3.5-5.1); Sodium Level 144 mmol/L (136-145)
[2023-04-17 14:34] LABS: Differential Comment SCANNED
[2023-04-17 15:21] VITALS: BP 133/67; PULSE 58; RESP 16; O2SAT 98
[2023-04-17 17:00] VITALS: BP 149/74; PULSE 59; RESP 16; O2SAT 97
[2023-04-17] MEDS: Loperamide 2 MG Capsule PO (17:16)
[2023-04-17 17:59] VITALS: BP 152/73; PULSE 58
== END 2023-04-17 18:52 | disposition home or self-care (01) ==
PROVIDERS: Emergency Provider Emergency Medicine; PCP Family Medicine; Visit Provider Emergency Medicine
DX: R19.7 Diarrhea, unspecified (principal); C85.10 Unspecified B-cell lymphoma, unspecified site; E11.9 Type 2 diabetes mellitus without complications; I25.10 Atherosclerotic heart disease of native coronary artery without angina pectoris; E86.0 Dehydration; R11.2 Nausea with vomiting, unspecified; I25.2 Old myocardial infarction; Z86.73 Personal history of transient ischemic attack (TIA), and cerebral infarction without residual deficits; Z95.1 Presence of aortocoronary bypass graft; Z87.891 Personal history of nicotine dependence
CPT/HCPCS: 80048; 82274; 83630; 85025; 87506; 96360; 96361; 99284; J7030; A4216